=== PATIENT | female | born 1970 | race African-American/Black ===

== ENCOUNTER 2017-02-23 17:16 | Emergency (ER) | payer OTHER ==
[2017-02-23 18:13] LABS: Bilirubin Negative (Negative); Blood, Urine Negative (Negative); Glucose, Urine (Dipstick) >=1000 mg/dL (Negative); Ketone, Urine Negative (Negative); Nitrite Negative (Negative); Protein, Urine (Dipstick) 100 mg/dL (Neg-Trace); Urobilinogen 0.2 mg/dL (0.2-1.0)
[2017-02-23 18:16] LABS: Bacteria/HPF Rare-Few HPF (None Seen); Hyaline Casts/LPF 0-3 HYALINE CAST LPF (0-3 Hyaline); RBC/HPF 0-3 HPF (0-3); Squamous Epithelial 0-3 HPF (0-3); WBC/HPF 0-3 HPF (0-3)
[2017-02-23 18:39] LABS: #Basophils 0.1 thou/uL (0.0-0.2); #Eosinphils 0.1 thou/uL (0.0-0.7); #Lymphocytes 2.7 thou/uL (1.20-3.40); #Monocytes 0.5 thou/uL (0.11-0.59); #Neutrophils 4.6 thou/uL (1.40-6.50); %Basophils 0.7 % (0.0-1.0); %Eosinophils 0.8 % (0.0-10.0); %Monocytes 6.2 % (0.0-10.0); Hematocrit 50.1 % (36.0-47.0); Mean Platelet Volume 8.8 fL (7.4-10.4); Red Blood Cell (RBC) Count 5.99 mill/uL (4.20-5.40); White Blood Cell (WBC) Count 7.8 thou/uL (4.8-10.8)
[2017-02-23 19:01] LABS: ALT (SGPT) 28 U/L (8-55); AST (SGOT) 16 U/L (5-34); Alkaline Phosphatase 94 U/L (40-150); Anion Gap 14 mmol/L (10-20); BUN (Urea Nitrogen) 11 mg/dL (7.0-18.7); Bilirubin, Total 0.3 mg/dL (0.2-1.2); Calc. Creatinine Clearance 0 mL/min (70-130); Calcium 10.2 mg/dL (7.8-10.44); Carbon Dioxide 27 mmol/L (22-29); Chloride 100 mmol/L (98-107); Estimated GFR-MDRD 86; Globulin 4.3 g/dL (2.4-3.5); Protein, Total 8.7 g/dL (6.0-8.3)
[2017-02-23] MEDS ORDERED: Insulin Regular 300 UNITS/3 ML VIAL ONE (19:17)
[2017-02-23] MEDS ORDERED: Acetaminophen 325 MG TAB ONE (20:32)
== END 2017-02-23 20:35 | disposition home or self-care (01) ==
LOC: ERS 17:16
DX: E11.65 Type 2 diabetes mellitus with hyperglycemia (principal); E86.0 Dehydration; K21.9 Gastro-esophageal reflux disease without esophagitis; E78.5 Hyperlipidemia, unspecified; I10 Essential (primary) hypertension; G43.909 Migraine, unspecified, not intractable, without status migrainosus; J45.909 Unspecified asthma, uncomplicated; F32.9 Major depressive disorder, single episode, unspecified; Z79.4 Long term (current) use of insulin
CPT/HCPCS: 36415; 36416; 80053; 81003; 81015; 82010; 85025; 96361; 96374; J1815

== ENCOUNTER 2017-06-13 08:11 | Outpatient (CLI) | payer OTHER ==
--- NOTE | 2017-06-13 11:25 | RAD ---
4 VIEWS LUMBAR SPINE: Date: 06/13/17 HISTORY: Lumbar radiculopathy, back pain. FINDINGS: Clips in right upper quadrant from prior cholecystectomy noted. Five lumbar-type vertebral bodies are present with intact pedicles on frontal imaging. Neutral, flexion, and extension lateral views demon strate no anterolisthesis or retrolisthesis. There is lower lumbar spine facet hypertrophic change, m ost prominent at the L5-S1 level. No acute fracture. IMPRESSION: No acute findings. POS: LIN
--- NOTE | 2017-06-13 11:27 | MRI ---
LUMBAR SPINE MRI WITHOUT CONTRAST: DATE: 06/13/17. COMPARISON: None. HISTORY: Low back pain with lumbar radiculopathy. TECHNIQUE: Multiplanar, multisequence MR imaging of the lumbar spine obtained without contrast. FINDINGS: The sagittal STIR imaging demonstrates no focal area of osseous marrow edema. Assuming 5 lumbar-type vertebral bodies, the conus medullaris terminates at the T12-L1 level. There is no significant anterolisthesis or retrolisthesis seen within the lumbar spine. T12-L1: There is a tiny right paracentral disk protrusion with no associated central canal stenosis. Mild bilateral facet hypertrophy. Intervertebral disk height and signal intensity is within normal limits. No significant central canal or neural foraminal stenosis. L1-2: Mild bilateral facet hypertrophy. Intervertebral disk height and signal intensity within norm al limits with no significant central canal or neural foraminal stenosis. L2-3: There is a small right paracentral disk protrusion and associated annular tear. No associated central canal stenosis. Mild bilateral facet hypertrophy with no significant neural foraminal steno sis on either side. L3-4: Mild bilateral facet hypertrophy. Intervertebral disk height and signal intensity within norm al limits with no significant central canal or neural foraminal stenosis. L4-5: Mild bilateral facet hypertrophy. Mild disk space narrowing and disk desiccation and disk bul ge. No significant central canal stenosis. Minimal left neural foraminal stenosis. L5-S1: Bilateral facet hypertrophy noted, right greater than left. Intervertebral disk height and s ignal intensity is within normal limits with no significant central canal or neural foraminal stenosi s. Imaged retroperitoneal structures are grossly unremarkable. IMPRESSION: Multilevel lower lumbar spine degenerative change. No severe central canal or neural foraminal steno sis at any level on either side. POS: LIN
== END 2017-06-13 08:12 | disposition home or self-care (01) ==
LOC: TBSIIMAG 08:11
PROVIDERS: ATTEND Physician Assistant Surgical
DX: M47.26 Other spondylosis with radiculopathy, lumbar region (principal)
CPT/HCPCS: 72110; 72148

== ENCOUNTER 2017-08-19 10:09 | Outpatient (CLI) | payer OTHER ==
--- NOTE | 2017-08-19 11:53 | ULT ---
VENOUS DUPLEX SONOGRAM RIGHT LOWER EXTREMITY: History: Right leg pain and edema. FINDINGS: The right common femoral vein and greater saphenous vein were evaluated along with the femoral, deep femoral, popliteal, and posterior tibial veins. There is good color and spectral doppler flow, compre ssion, and augmentation. IMPRESSION: No sonographic evidence of DVT right lower extremity. POS: DOROTEO
== END 2017-08-19 10:10 | disposition home or self-care (01) ==
LOC: ULT 10:09
PROVIDERS: ATTEND Specialist
DX: M79.604 Pain in right leg (principal); M46.1 Sacroiliitis, not elsewhere classified

== ENCOUNTER 2018-11-09 09:56 | Outpatient (CLI) | payer OTHER ==
--- NOTE | 2018-11-09 10:39 | RAD ---
RIGHT HIP TWO VIEWS: History: Right hip pain. FINDINGS/IMPRESSION: There are mild degenerative changes. No fracture, dislocation, or bony destruction is seen. POS: TPC
--- NOTE | 2018-11-09 10:58 | RAD ---
LEFT HIP TWO VIEWS: History: Left hip pain. FINDINGS/IMPRESSION: There are mild degenerative changes. No fracture, dislocation, or bony destruction is identified. POS: TPC
== END 2018-11-09 09:57 | disposition home or self-care (01) ==
LOC: RAD 09:56
PROVIDERS: ATTEND Nurse Practitioner Family
DX: M25.551 Pain in right hip (principal); M25.552 Pain in left hip; M16.0 Bilateral primary osteoarthritis of hip

== ENCOUNTER 2019-01-24 12:51 | Outpatient (CLI) | payer OTHER ==
--- NOTE | 2019-01-24 13:58 | MMO ---
Bilateral MAMMO Bilat Screen DDI. CLINICAL HISTORY: Patient is 48 years old and is seen for screening. The patient has the following family history of breast cancer: sister, at age 35, LUNG AND OVARIAN and niece. The patient has no personal history of cancer. VIEWS: The views performed were: bilateral craniocaudal and bilateral mediolateral oblique. FILMS COMPARED: The present examination has been compared to prior imaging studies performed at [facility] on 03/09/2006, 09/10/2010, 04/13/2012 and 01/17/2016. This study has been interpreted with the assistance of computer-aided detection. MAMMOGRAM FINDINGS: There are scattered fibroglandular densities. There are no suspicious masses, suspicious calcifications, or new areas of architectural distortion. IMPRESSION: THERE IS NO MAMMOGRAPHIC EVIDENCE OF MALIGNANCY. A ROUTINE FOLLOW-UP MAMMOGRAM IN 1 YEAR IS RECOMMENDED. ACR BI-RADS Category 1 - Negative MAMMOGRAPHY NOTE: 1. A negative mammogram report should not delay a biopsy if a dominant of clinically suspicious mass is present. 2. Approximately 10% to 15% of breast cancers are not detected by mammography. 3. Adenosis and dense breasts may obscure an underlying neoplasm. Reported by: TARAH NICKERSON MD Electonically Signed: [id number]
== END 2019-01-24 12:52 | disposition home or self-care (01) ==
LOC: BICMAMMO 12:51
PROVIDERS: ATTEND Physician Assistant
DX: Z12.31 Encounter for screening mammogram for malignant neoplasm of breast (principal); Z80.3 Family history of malignant neoplasm of breast
CPT/HCPCS: 77067

== ENCOUNTER 2020-05-30 12:58 | Emergency (ER) | payer OTHER ==
[2020-05-30 13:31] LABS: #Eosinphils 0.1 thou/uL (0.0-0.7); #Lymphocytes 2.1 thou/uL (1.20-3.40); #Monocytes 0.4 thou/uL (0.11-0.59); #Neutrophils 4.5 thou/uL (1.40-6.50); %Basophils 0.4 % (0.0-1.0); %Eosinophils 1.4 % (0.0-10.0); %Lymphocytes 29.9 % (21.0-51.0); %Monocytes 5.6 % (0.0-10.0); %Neutrophils 62.7 % (42.0-75.0); Mean Corpuscular Hemoglobin 26.8 pg (27.0-31.0); Mean Corpuscular Volume 81.3 fL (78.0-98.0); Mean Platelet Volume 8.8 fL (7.4-10.4); Platelet Count 205 thou/uL (130-400); RBC Distribution Width 12.4 % (11.5-14.5); Red Blood Cell (RBC) Count 5.58 mill/uL (4.20-5.40); White Blood Cell (WBC) Count 7.1 thou/uL (4.8-10.8)
[2020-05-30 13:53] LABS: ALT (SGPT) 14 U/L (8-55); AST (SGOT) 10 U/L (5-34); Albumin 3.5 g/dL (3.5-5.0); Alkaline Phosphatase 78 U/L (40-110); Anion Gap 14 mmol/L (10-20); BUN (Urea Nitrogen) 12 mg/dL (7.0-18.7); Bilirubin, Total 0.2 mg/dL (0.2-1.2); Calc. Creatinine Clearance 0 mL/min (70-130); Calcium 8.8 mg/dL (7.8-10.44); Carbon Dioxide 26 mmol/L (22-29); Chloride 101 mmol/L (98-107); Globulin 3.2 g/dL (2.4-3.5); Glucose 469 mg/dL (70-105); Potassium 3.9 mmol/L (3.5-5.1); Protein, Total 6.7 g/dL (6.0-8.3); Sodium 137 mmol/L (136-145)
== END 2020-05-30 15:22 | disposition home or self-care (01) ==
LOC: ERS 12:58
DX: R07.89 Other chest pain (principal); E11.9 Type 2 diabetes mellitus without complications; E78.5 Hyperlipidemia, unspecified; I12.0 Hypertensive chronic kidney disease with stage 5 chronic kidney disease or end stage renal disease; N18.6 End stage renal disease; Z79.899 Other long term (current) drug therapy
CPT/HCPCS: 36415; 71045; 80053; 84484; 85025; 85379; 93005; 94760

== ENCOUNTER 2020-06-18 12:10 | Emergency (ER) | payer OTHER | END 2020-06-18 15:02 | disposition left against medical advice (07) | LOC: ERS 12:10 | DX: Z53.21 Procedure and treatment not carried out due to patient leaving prior to being seen by health care provider (principal) ==

== ENCOUNTER 2020-06-23 10:25 | Day surgery (SDC) | payer OTHER ==
[2020-06-23] MEDS ORDERED: Vancomycin 1 GM/200 ML BAG ONE (11:15)
[2020-06-23 12:00] LABS: Hemoglobin 11.8 g/dL (12.0-16.0); Mean Corpuscular HGB CONC 32.3 g/dL (32.0-36.0); Mean Corpuscular Hemoglobin 26.6 pg (27.0-31.0); Mean Corpuscular Volume 82.3 fL (78.0-98.0); Platelet Count 374 thou/uL (130-400); RBC Distribution Width 11.6 % (11.5-14.5); Red Blood Cell (RBC) Count 4.42 mill/uL (4.20-5.40)
[2020-06-23 12:01] LABS: ALT (SGPT) 12 U/L (8-55); AST (SGOT) 9 U/L (5-34); Albumin 2.5 g/dL (3.5-5.0); Alkaline Phosphatase 99 U/L (40-110); Anion Gap 16 mmol/L (10-20); BUN (Urea Nitrogen) 7 mg/dL (7.0-18.7); Bilirubin, Total 0.4 mg/dL (0.2-1.2); CK (CPK) 72 U/L (29-168); Calc. Creatinine Clearance 0 mL/min (70-130); Calcium 8.1 mg/dL (7.8-10.44); Carbon Dioxide 28 mmol/L (22-29); Chloride 91 mmol/L (98-107); Globulin 4.4 g/dL (2.4-3.5); Glucose 524 mg/dL (70-105); Potassium 3.2 mmol/L (3.5-5.1); Protein, Total 6.9 g/dL (6.0-8.3); Sodium 132 mmol/L (136-145)
[2020-06-23 12:30] LABS: Band 13 % (5-11); Eosinophils 1 % (0-10); Lymphocytes 17 % (21-51); MDiff Complete? YES; Monocytes 4 % (0-10); Neutrophil 64 % (42-75); RBC Morphology Normal; Reactive Lymphocytes 1 % (0-10)
[2020-06-23] MEDS ORDERED: Morphine 4 MG/ML VIAL ONE (12:35)
[2020-06-23 12:58] LABS: SARS-CoV-2 NAA Rapid Test Not Detected (NotDetected)
[2020-06-23] MEDS ORDERED: Piperacillin/Tazobactam 4.5 GM VIAL ONE (13:29)
[2020-06-23] MEDS ORDERED: Insulin Regular 300 UNITS/3 ML VIAL ONE (14:32)
[2020-06-23] MEDS ORDERED: Fentanyl 100 MCG/2 ML VIAL ONE ×4 (15:36→18:10)
[2020-06-23] MEDS ORDERED: Midazolam HCl 2 mg/2 ml Vial ONE (15:52)
[2020-06-23] MEDS ORDERED: Lidocaine 1% PF 5 ML VIAL ONE (16:12)
[2020-06-23] MEDS ORDERED: Rocuronium Bromide 10 MG/ML (10ML VIAL) ONE (16:12)
[2020-06-23] MEDS ORDERED: PROPOFOL 200 MG/20 ML VIAL ONE (16:12)
[2020-06-23] MEDS ORDERED: Ondansetron PF 4 MG/2 ML Vial ONE (16:12)
[2020-06-23] MEDS ORDERED: SUGAMMADEX SODIUM 200 MG/2 ML VIAL ONE (16:38)
[2020-06-23] MEDS ORDERED: HYDROcodone/Acetaminophen 5/325 mg Tablet ONE (18:48)
== END 2020-06-23 19:30 | disposition home or self-care (01) ==
LOC: ERS 10:25 → SDC 13:47
PROVIDERS: ATTEND Surgery
PROC: 0J990ZZ Drainage of Buttock Subcutaneous Tissue and Fascia, Open Approach (ICD-10-PCS; principal; 2020-06-23)
DX: L02.31 Cutaneous abscess of buttock (principal); E78.5 Hyperlipidemia, unspecified; I12.9 Hypertensive chronic kidney disease with stage 1 through stage 4 chronic kidney disease, or unspecified chronic kidney disease; E11.22 Type 2 diabetes mellitus with diabetic chronic kidney disease; N18.2 Chronic kidney disease, stage 2 (mild); J45.909 Unspecified asthma, uncomplicated; E11.42 Type 2 diabetes mellitus with diabetic polyneuropathy; E66.9 Obesity, unspecified; Z68.37 Body mass index [BMI] 37.0-37.9, adult; Z79.4 Long term (current) use of insulin; Z79.899 Other long term (current) drug therapy; Z88.0 Allergy status to penicillin; Z88.8 Allergy status to other drugs, medicaments and biological substances; Z20.822 Contact with and (suspected) exposure to COVID-19
CPT/HCPCS: 36415; 36416; 80053; 82550; 85025; 87070; 87077; 87186; 87205; 93005; 96365; 96375; J1815; J2250; J2270; J2405; J2543; J2704; J3010; J3370; J7620; U0002

== ENCOUNTER 2020-07-08 09:53 | Outpatient (CLI) | payer OTHER ==
[~2020-07-08 09:53] MED LIST: Iopamidol-370 76% 500 ML 1 ML ONE
[2020-07-08 10:27] LABS: Estimated GFR-MDRD - POC Greater than 90
== END 2020-07-08 09:54 | disposition home or self-care (01) ==
LOC: BICCT 09:53
PROVIDERS: ATTEND Internal Medicine Nephrology
DX: I12.9 Hypertensive chronic kidney disease with stage 1 through stage 4 chronic kidney disease, or unspecified chronic kidney disease (principal); N18.2 Chronic kidney disease, stage 2 (mild); R16.0 Hepatomegaly, not elsewhere classified; N28.89 Other specified disorders of kidney and ureter; Z90.49 Acquired absence of other specified parts of digestive tract
CPT/HCPCS: 74175; 82565; Q9967

== ENCOUNTER 2022-11-13 16:10 | Inpatient (IN) | payer OTHER ==
[2022-11-13 17:05] LABS: #Basophils 0.1 thou/uL (0.0-0.2); #Eosinphils 0.2 thou/uL (0.0-0.7); #Monocytes 0.7 thou/uL (0.11-0.59); #Neutrophils 6.2 thou/uL (1.40-6.50); %Basophils 0.7 % (0.0-1.0); %Eosinophils 2.6 % (0.0-10.0); %Lymphocytes 20.4 % (21.0-51.0); %Monocytes 7.5 % (0.0-10.0); %Neutrophils 68.4 % (42.0-75.0); Hematocrit 38.6 % (36.0-47.0); Hemoglobin 12.5 g/dL (12.0-16.0); Mean Corpuscular HGB CONC 32.4 g/dL (32.0-36.0); Mean Corpuscular Hemoglobin 25.2 pg (27.0-31.0); Mean Corpuscular Volume 77.7 fl (78.0-98.0); Mean Platelet Volume 10.7 fL (7.4-10.4); Platelet Count 266 10x3/uL (130-400); RBC Distribution Width 13.9 % (11.5-14.5); Red Blood Cell (RBC) Count 4.97 mill/uL (4.20-5.40)
[2022-11-13 17:28] LABS: ALT (SGPT) Less than 7 U/L (8-55); AST (SGOT) 8 U/L (5-34); Albumin 3.3 g/dL (3.5-5.0); Alkaline Phosphatase 70 U/L (40-110); Anion Gap 14 mmol/L (10-20); BUN (Urea Nitrogen) 43 mg/dL (9.8-20.1); Bilirubin, Total 0.2 mg/dL (0.2-1.2); Calc. Creatinine Clearance 0 mL/min (70-130); Calcium 9.2 mg/dL (7.8-10.44); Carbon Dioxide 21 mmol/L (22-29); Chloride 105 mmol/L (98-107); Estimated GFR 12; Globulin 4.2 g/dL (2.4-3.5); Glucose 250 mg/dL (70-105); Lipase 46 U/L (8-78); Potassium 3.3 mmol/L (3.5-5.1); Protein, Total 7.5 g/dL (6.0-8.3); Sodium 137 mmol/L (136-145)
[2022-11-13 17:33] LABS: Troponin I Less than 0.010 ng/mL (< 0.028)
[2022-11-13] MEDS ORDERED: fentaNYL 50 mcg/mL 1 mL Vial ONE (18:05)
[2022-11-13] MEDS ORDERED: Aspirin Chewable 81 MG TAB ONE (18:05)
[2022-11-13 20:51] VITALS: BMI 38.7
[2022-11-13 21:27] LABS: Troponin I Less than 0.010 ng/mL (< 0.028)
[2022-11-13] MEDS ORDERED: Ondansetron ODT 4 MG TAB PO PRN (22:31)
[2022-11-13] MEDS ORDERED: Calcium Carbonate 500 MG ChewTAB PO PRN (22:31)
[2022-11-13] MEDS ORDERED: Senokot S 8.6-50 MG TAB PO PRN (22:31)
[2022-11-13] MEDS ORDERED: Dextrose 5% in Water 1,000 ML IV PRN (22:33)
[2022-11-13] MEDS ORDERED: Dextrose 50% Abboject 50 ML SYRINGE SLOW IVP PRN (22:33)
[2022-11-13] MEDS ORDERED: HumaLOG 300 UNITS/3 ML VIAL SC PRN (22:33)
[2022-11-13] MEDS ORDERED: Glucagon 1 MG/ML KIT IM PRN (22:33)
[2022-11-13] MEDS ORDERED: Lactated Ringer's 1,000 ML IV SCH (22:45)
[2022-11-13] MEDS ORDERED: Potassium Chloride 20 MEQ TAB PO SCH (22:45)
[2022-11-13 22:55] LABS: Hemoglobin A1c 8.2 % (4.0-6.0)
[2022-11-13] MEDS: Acetaminophen 325 MG TAB PO PRN (22:55)
[2022-11-14 00:45] LABS: Troponin I Less than 0.010 ng/mL (< 0.028)
[2022-11-14] MEDS: HumaLOG 300 UNITS/3 ML VIAL SC PRN ×2 (06:28→17:10)
[2022-11-14 06:31] LABS: #Basophils 0.1 thou/uL (0.0-0.2); #Eosinphils 0.4 thou/uL (0.0-0.7); #Monocytes 0.8 thou/uL (0.11-0.59); %Basophils 0.7 % (0.0-1.0); %Eosinophils 3.5 % (0.0-10.0); %Lymphocytes 27.4 % (21.0-51.0); %Monocytes 8.1 % (0.0-10.0); %Neutrophils 60.2 % (42.0-75.0); Hematocrit 39.8 % (36.0-47.0); Hemoglobin 12.7 g/dL (12.0-16.0); Mean Corpuscular HGB CONC 31.9 g/dL (32.0-36.0); Mean Corpuscular Hemoglobin 24.7 pg (27.0-31.0); Mean Corpuscular Volume 77.3 fl (78.0-98.0); Mean Platelet Volume 10.4 fL (7.4-10.4); Platelet Count 281 10x3/uL (130-400); RBC Distribution Width 13.8 % (11.5-14.5); Red Blood Cell (RBC) Count 5.15 mill/uL (4.20-5.40)
[2022-11-14 06:54] LABS: Anion Gap 15 mmol/L (10-20); BUN (Urea Nitrogen) 45 mg/dL (9.8-20.1); Calc. Creatinine Clearance 22 mL/min (70-130); Calcium 9.7 mg/dL (7.8-10.44); Carbon Dioxide 23 mmol/L (22-29); Chloride 106 mmol/L (98-107); Estimated GFR 12; Glucose 181 mg/dL (70-105); Potassium 3.6 mmol/L (3.5-5.1); Sodium 140 mmol/L (136-145)
[2022-11-14] MEDS ORDERED: Lorazepam 0.5 MG TAB PO PRN (07:47)
[2022-11-14] MEDS ORDERED: Albuterol 200 PUFF (6.7GM INHALER) INH PRN (07:47)
[2022-11-14] MEDS ORDERED: Non-Formulary Item 1 EACH (Budesonide [Pulmicort Flexhaler] 180 MCG Inhaler) INH PRN (07:47)
[2022-11-14] MEDS ORDERED: BUDESONIDE 180 MCG INH PRN (08:04)
[2022-11-14] MEDS ORDERED: Metoprolol Tartrate 25 MG TAB PO SCH (09:00)
[2022-11-14] MEDS ORDERED: Famotidine 20 MG TAB PO SCH (09:00)
[2022-11-14] MEDS: DULoxetine 20 MG CAP PO SCH ×2 (11:29→22:09)
[2022-11-14] MEDS: Insulin Glargine 30 UNITS/0.3 ML VIAL SC SCH ×2 (11:30→21:41)
[2022-11-14] MEDS ORDERED: Sodium Chloride 0.9% 1,000 ML IV SCH (12:00)
[2022-11-14] MEDS ORDERED: Mometasone Furoate 30 PUFF 220 MCG INH PRN (12:41)
[2022-11-14] MEDS ORDERED: hydrALAZINE 25 MG TAB PO SCH ×2 (13:30→21:00)
[2022-11-14] MEDS ORDERED: NIFEdipine XL 30 MG TAB PO SCH (16:46)
[2022-11-14] MEDS: NIFEdipine XL 60 MG TAB PO SCH (17:08)
[2022-11-14] MEDS: Carvedilol 6.25 MG TAB PO SCH (17:08)
[2022-11-14] MEDS ORDERED: niCARdipine 25 MG in Sodium Chloride 0.9% 250 ML 250 ML IVPB PRN (19:16)
[2022-11-14] MEDS ORDERED: Atorvastatin Calcium 40 MG TAB PO SCH (21:00)
[2022-11-14] MEDS ORDERED: hydrALAZINE 20 MG/ML VIAL SLOW IVP PRN (21:07)
[2022-11-14] MEDS ORDERED: Labetalol HCl 100 MG/20 ML VIAL SLOW IVP PRN (21:07)
[2022-11-14] MEDS ORDERED: niCARdipine 40MG In NaCl 40 MG/200 ML BAG IVPB SCH (21:23)
[2022-11-14] MEDS ORDERED: niCARdipine 50 MG, Admixture Fee 1 EACH in Sodium Chloride 0.9% 250 ML 230 ML IV SCH (21:30)
[2022-11-14] MEDS ORDERED: Acetaminophen 500 MG TAB PO SCH (21:30)
[2022-11-14] MEDS: Acetaminophen 325 MG TAB PO PRN (21:37)
[2022-11-14] MEDS: hydrALAZINE 25 MG TAB PO SCH (21:56)
[2022-11-14] MEDS: cloNIDine 0.1 MG TAB PO SCH (22:00)
[2022-11-15] MEDS: NIFEdipine XL 60 MG TAB PO SCH ×2 (07:38→20:58)
[2022-11-15] MEDS: cloNIDine 0.1 MG TAB PO SCH ×3 (07:39→20:58)
[2022-11-15] MEDS: hydrALAZINE 25 MG TAB PO SCH ×3 (07:39→20:57)
[2022-11-15] MEDS: Rosuvastatin 20 MG TAB PO SCH (07:40)
[2022-11-15] MEDS: Escitalopram Oxalate 20 mg Tablet PO SCH (07:40)
[2022-11-15] MEDS: Carvedilol 6.25 MG TAB PO SCH ×2 (07:42→17:28)
[2022-11-15] MEDS: Insulin Glargine 30 UNITS/0.3 ML VIAL SC SCH ×2 (07:44→20:59)
[2022-11-15] MEDS: DULoxetine 20 MG CAP PO SCH ×2 (08:25→21:07)
[2022-11-15] MEDS ORDERED: NIFEdipine XL 30 MG TAB PO SCH (09:00)
[2022-11-15 10:31] LABS: Amphetamine Not Detected (NotDetected); Barbiturates Screen Not Detected (NotDetected); Benzodiazepine Screen Not Detected (NotDetected); Cocaine Metabolite Screen Not Detected (NotDetected); Methadone Not Detected (NotDetected); Methamphetamine Not Detected (NotDetected); Opiate Screen Not Detected (NotDetected); Oxycodone Screen Not Detected (NotDetected); Phencyclidine (PCP) Not Detected (NotDetected); THC/Cannabinoid Screen Not Detected (NotDetected); Tricyclic Screen Not Detected (NotDetected)
[2022-11-15] MEDS: HumaLOG 300 UNITS/3 ML VIAL SC PRN (10:49)
[2022-11-15 11:23] LABS: #Basophils 0.1 thou/uL (0.0-0.2); #Eosinphils 0.2 thou/uL (0.0-0.7); #Monocytes 0.7 thou/uL (0.11-0.59); #Neutrophils 5.9 thou/uL (1.40-6.50); %Basophils 0.6 % (0.0-1.0); %Eosinophils 2.6 % (0.0-10.0); %Lymphocytes 18.8 % (21.0-51.0); %Monocytes 7.8 % (0.0-10.0); %Neutrophils 69.8 % (42.0-75.0); Hematocrit 38.3 % (36.0-47.0); Mean Corpuscular HGB CONC 31.3 g/dL (32.0-36.0); Mean Corpuscular Hemoglobin 24.8 pg (27.0-31.0); Mean Corpuscular Volume 79.1 fl (78.0-98.0); Mean Platelet Volume 11.4 fL (7.4-10.4); Platelet Count 271 10x3/uL (130-400); RBC Distribution Width 14.1 % (11.5-14.5); Red Blood Cell (RBC) Count 4.84 mill/uL (4.20-5.40); White Blood Cell (WBC) Count 8.5 10x3/uL (4.8-10.8)
[2022-11-15 11:47] LABS: Anion Gap 11 mmol/L (10-20); BUN (Urea Nitrogen) 45 mg/dL (9.8-20.1); Calc. Creatinine Clearance 24 mL/min (70-130); Calcium 9.3 mg/dL (7.8-10.44); Carbon Dioxide 19 mmol/L (22-29); Chloride 109 mmol/L (98-107); Estimated GFR 12; Glucose 179 mg/dL (70-105); Potassium 3.5 mmol/L (3.5-5.1); Sodium 135 mmol/L (136-145)
[2022-11-15 11:48] LABS: Albumin 3.1 g/dL (3.5-5.0); Anion Gap 11 mmol/L (10-20); BUN (Urea Nitrogen) 44 mg/dL (9.8-20.1); BUN/Creatinine Ratio 10.73; Calc. Creatinine Clearance 24 mL/min (70-130); Calcium 9.3 mg/dL (7.8-10.44); Carbon Dioxide 19 mmol/L (22-29); Chloride 110 mmol/L (98-107); Estimated GFR 12; Glucose 181 mg/dL (70-105); Phosphorus 4.1 mg/dL (2.3-4.7); Potassium 3.5 mmol/L (3.5-5.1); Sodium 136 mmol/L (136-145)
[2022-11-15] MEDS: Acetaminophen 325 MG TAB PO PRN (14:48)
[2022-11-15] MEDS: Heparin 5,000 UNITS/ML VIAL SC SCH (21:02)
[2022-11-16 08:43] LABS: #Basophils 0.1 thou/uL (0.0-0.2); #Eosinphils 0.1 thou/uL (0.0-0.7); #Monocytes 0.7 thou/uL (0.11-0.59); #Neutrophils 5.4 thou/uL (1.40-6.50); %Basophils 0.8 % (0.0-1.0); %Eosinophils 1.6 % (0.0-10.0); %Lymphocytes 20.9 % (21.0-51.0); %Monocytes 8.5 % (0.0-10.0); %Neutrophils 67.8 % (42.0-75.0); Hematocrit 35.5 % (36.0-47.0); Hemoglobin 10.9 g/dL (12.0-16.0); Mean Corpuscular HGB CONC 30.7 g/dL (32.0-36.0); Mean Corpuscular Hemoglobin 24.7 pg (27.0-31.0); Mean Corpuscular Volume 80.5 fl (78.0-98.0); Platelet Count 261 10x3/uL (130-400); RBC Distribution Width 14.4 % (11.5-14.5); Red Blood Cell (RBC) Count 4.41 mill/uL (4.20-5.40); White Blood Cell (WBC) Count 7.9 10x3/uL (4.8-10.8)
[2022-11-16] MEDS: NIFEdipine XL 60 MG TAB PO SCH ×2 (09:15→22:00)
[2022-11-16] MEDS: Carvedilol 6.25 MG TAB PO SCH ×2 (09:15→17:59)
[2022-11-16] MEDS: Heparin 5,000 UNITS/ML VIAL SC SCH ×2 (09:16→20:35)
[2022-11-16] MEDS: Famotidine 20 MG TAB PO SCH (09:16)
[2022-11-16] MEDS: cloNIDine 0.1 MG TAB PO SCH (09:16)
[2022-11-16] MEDS: hydrALAZINE 25 MG TAB PO SCH ×3 (09:16→22:00)
[2022-11-16] MEDS: Escitalopram Oxalate 20 mg Tablet PO SCH (09:16)
[2022-11-16] MEDS: Insulin Glargine 30 UNITS/0.3 ML VIAL SC SCH ×2 (09:16→20:36)
[2022-11-16] MEDS: Rosuvastatin 20 MG TAB PO SCH (09:21)
[2022-11-16] MEDS: DULoxetine 20 MG CAP PO SCH ×2 (09:21→21:53)
[2022-11-16 09:23] LABS: Albumin 2.8 g/dL (3.5-5.0); Anion Gap 15 mmol/L (10-20); BUN (Urea Nitrogen) 48 mg/dL (9.8-20.1); Calc. Creatinine Clearance 21 mL/min (70-130); Carbon Dioxide 20 mmol/L (22-29); Chloride 106 mmol/L (98-107); Estimated GFR 11; Glucose 127 mg/dL (70-105); Phosphorus 5.1 mg/dL (2.3-4.7); Sodium 137 mmol/L (136-145)
[2022-11-17] MEDS: Acetaminophen 325 MG TAB PO PRN (06:02)
[2022-11-17] MEDS ORDERED: Carvedilol 3.125 MG TAB PO SCH (08:00)
[2022-11-17 08:10] LABS: #Eosinphils 0.2 thou/uL (0.0-0.7); #Monocytes 0.7 thou/uL (0.11-0.59); #Neutrophils 4.4 thou/uL (1.40-6.50); %Basophils 0.4 % (0.0-1.0); %Eosinophils 2.2 % (0.0-10.0); %Lymphocytes 21.1 % (21.0-51.0); %Monocytes 10.5 % (0.0-10.0); %Neutrophils 65.5 % (42.0-75.0); Hematocrit 34.1 % (36.0-47.0); Hemoglobin 10.5 g/dL (12.0-16.0); Mean Corpuscular HGB CONC 30.8 g/dL (32.0-36.0); Mean Corpuscular Hemoglobin 24.5 pg (27.0-31.0); Mean Corpuscular Volume 79.7 fl (78.0-98.0); Mean Platelet Volume 10.8 fL (7.4-10.4); Platelet Count 233 10x3/uL (130-400); RBC Distribution Width 14.1 % (11.5-14.5); Red Blood Cell (RBC) Count 4.28 mill/uL (4.20-5.40); White Blood Cell (WBC) Count 6.8 10x3/uL (4.8-10.8)
[2022-11-17] MEDS: Rosuvastatin 20 MG TAB PO SCH (08:25)
[2022-11-17] MEDS: NIFEdipine XL 60 MG TAB PO SCH ×2 (08:25→21:23)
[2022-11-17] MEDS: Escitalopram Oxalate 20 mg Tablet PO SCH (08:25)
[2022-11-17] MEDS: Heparin 5,000 UNITS/ML VIAL SC SCH ×2 (08:26→21:23)
[2022-11-17] MEDS: Insulin Glargine 30 UNITS/0.3 ML VIAL SC SCH ×2 (08:26→21:23)
[2022-11-17 08:30] LABS: Albumin 2.9 g/dL (3.5-5.0); Anion Gap 4 mmol/L (10-20); BUN (Urea Nitrogen) 48 mg/dL (9.8-20.1); BUN/Creatinine Ratio 10.23; Calc. Creatinine Clearance 20 mL/min (70-130); Carbon Dioxide 20 mmol/L (22-29); Chloride 109 mmol/L (98-107); Estimated GFR 11; Glucose 110 mg/dL (70-105); Phosphorus 5.5 mg/dL (2.3-4.7); Potassium 3.6 mmol/L (3.5-5.1); Sodium 129 mmol/L (136-145)
[2022-11-17] MEDS: DULoxetine 20 MG CAP PO SCH ×2 (08:31→21:45)
[2022-11-17] MEDS: hydrALAZINE 25 MG TAB PO SCH (08:32)
[2022-11-17] MEDS: Sodium Chloride 0.9% 1,000 ML IV SCH (11:19)
[2022-11-17] MEDS: Carvedilol 6.25 MG TAB PO SCH (17:59)
[2022-11-18] MEDS: Carvedilol 6.25 MG TAB PO SCH ×2 (08:15→17:28)
[2022-11-18] MEDS: Famotidine 20 MG TAB PO SCH (08:15)
[2022-11-18] MEDS: Escitalopram Oxalate 20 mg Tablet PO SCH (08:16)
[2022-11-18] MEDS: NIFEdipine XL 60 MG TAB PO SCH (08:16)
[2022-11-18] MEDS: Heparin 5,000 UNITS/ML VIAL SC SCH (08:16)
[2022-11-18] MEDS: Insulin Glargine 30 UNITS/0.3 ML VIAL SC SCH (08:16)
[2022-11-18] MEDS: Rosuvastatin 20 MG TAB PO SCH (08:16)
[2022-11-18] MEDS: DULoxetine 20 MG CAP PO SCH (08:17)
[2022-11-18] MEDS: Sodium Chloride 0.9% 1,000 ML IV SCH ×3 (08:23→17:28)
[2022-11-18 12:20] LABS: Anion Gap 14 mmol/L (10-20); BUN (Urea Nitrogen) 45 mg/dL (9.8-20.1); BUN/Creatinine Ratio 10.16; Calc. Creatinine Clearance 22 mL/min (70-130); Calcium 8.6 mg/dL (7.8-10.44); Carbon Dioxide 20 mmol/L (22-29); Chloride 109 mmol/L (98-107); Estimated GFR 11; Glucose 131 mg/dL (70-105); Phosphorus 4.6 mg/dL (2.3-4.7); Potassium 3.9 mmol/L (3.5-5.1); Sodium 139 mmol/L (136-145)
[2022-11-18 16:51] VITALS: BP 158/73; TEMP 98.1
[2022-11-18] MEDS: Acetaminophen 325 MG TAB PO PRN (17:30)
== END 2022-11-18 17:48 | disposition home or self-care (01) | DRG 392 ==
LOC: ERS 16:10 → 2SW 18:45 → OBSVTOIN 11-14 07:49 → CCU 11-14 21:12 → IMCU/EMU 11-15 14:04 → T4-A 11-16 15:29
PROVIDERS: ADMIT Family Medicine; ATTEND Internal Medicine
DX: K21.9 Gastro-esophageal reflux disease without esophagitis (principal); N17.9 Acute kidney failure, unspecified; I16.0 Hypertensive urgency; E11.22 Type 2 diabetes mellitus with diabetic chronic kidney disease; N18.31 Chronic kidney disease, stage 3a; E78.5 Hyperlipidemia, unspecified; F32.A Depression, unspecified; F41.9 Anxiety disorder, unspecified; E87.6 Hypokalemia; I12.9 Hypertensive chronic kidney disease with stage 1 through stage 4 chronic kidney disease, or unspecified chronic kidney disease; G47.33 Obstructive sleep apnea (adult) (pediatric); E11.42 Type 2 diabetes mellitus with diabetic polyneuropathy; R51.9 Headache, unspecified; D63.1 Anemia in chronic kidney disease; E66.9 Obesity, unspecified; Z88.0 Allergy status to penicillin; Z88.8 Allergy status to other drugs, medicaments and biological substances; Z79.84 Long term (current) use of oral hypoglycemic drugs; Z90.49 Acquired absence of other specified parts of digestive tract; Z90.710 Acquired absence of both cervix and uterus; Z98.890 Other specified postprocedural states; Z79.4 Long term (current) use of insulin; Z68.38 Body mass index [BMI] 38.0-38.9, adult; Z82.49 Family history of ischemic heart disease and other diseases of the circulatory system; R07.2 Precordial pain
CPT/HCPCS: 36415; 36416; 71045; 76770; 80048; 80053; 80069; 80306; 83036; 83690; 83935; 84300; 84484; 85025; 93005; 93306; 96374; G0378; J1644; J1815; J3010; J7050; J7120; Q0162

== ENCOUNTER 2022-12-28 20:11 | Inpatient (IN) | payer OTHER ==
[2022-12-28 20:39] LABS: #Basophils 0.1 thou/uL (0.0-0.2); #Eosinphils 0.1 thou/uL (0.0-0.7); #Monocytes 0.7 thou/uL (0.11-0.59); #Neutrophils 12.4 thou/uL (1.40-6.50); %Basophils 0.5 % (0.0-1.0); %Eosinophils 0.8 % (0.0-10.0); %Lymphocytes 11.3 % (21.0-51.0); %Monocytes 4.6 % (0.0-10.0); %Neutrophils 82.3 % (42.0-75.0); Hematocrit 29.5 % (36.0-47.0); Hemoglobin 9.3 g/dL (12.0-16.0); Mean Corpuscular HGB CONC 31.5 g/dL (32.0-36.0); Mean Corpuscular Hemoglobin 24.9 pg (27.0-31.0); Mean Corpuscular Volume 79.1 fl (78.0-98.0); Mean Platelet Volume 11.1 fL (7.4-10.4); Platelet Count 322 10x3/uL (130-400); RBC Distribution Width 14.5 % (11.5-14.5); Red Blood Cell (RBC) Count 3.73 mill/uL (4.20-5.40); White Blood Cell (WBC) Count 15.1 10x3/uL (4.8-10.8)
[2022-12-28 21:04] LABS: ALT (SGPT) Less than 7 U/L (8-55); AST (SGOT) 10 U/L (5-34); Albumin 3.2 g/dL (3.5-5.0); Alkaline Phosphatase 74 U/L (40-110); Anion Gap 14 mmol/L (10-20); BUN (Urea Nitrogen) 35 mg/dL (9.8-20.1); Bilirubin, Total 0.2 mg/dL (0.2-1.2); Calc. Creatinine Clearance 0 mL/min (70-130); Calcium 8.6 mg/dL (7.8-10.44); Carbon Dioxide 20 mmol/L (22-29); Chloride 108 mmol/L (98-107); Estimated GFR 12; Globulin 3.6 g/dL (2.4-3.5); Glucose 212 mg/dL (70-105); Potassium 3.9 mmol/L (3.5-5.1); Protein, Total 6.8 g/dL (6.0-8.3); Sodium 138 mmol/L (136-145)
[2022-12-28] MEDS ORDERED: Aspirin Chewable 81 MG TAB ONE (21:15)
[2022-12-28] MEDS ORDERED: Furosemide 40 MG/4 ML VIAL ONE (21:15)
[2022-12-28] MEDS ORDERED: HumaLOG 300 UNITS/3 ML VIAL SC PRN ×2 (21:42)
[2022-12-28] MEDS ORDERED: Glucagon 1 MG/ML KIT IM PRN (21:42)
[2022-12-28] MEDS ORDERED: Ondansetron PF 4 MG/2 ML Vial IVP PRN (21:42)
[2022-12-28] MEDS ORDERED: Acetaminophen 325 MG TAB PO PRN (21:42)
[2022-12-28] MEDS ORDERED: Dextrose 5% in Water 1,000 ML IV PRN (21:42)
[2022-12-28] MEDS ORDERED: Dextrose 50% Abboject 50 ML SYRINGE SLOW IVP PRN (21:42)
[2022-12-28] MEDS ORDERED: Ondansetron ODT 4 MG TAB PO PRN (21:42)
[2022-12-28 22:02] LABS: Hemoglobin A1c 7.3 % (4.0-6.0)
[2022-12-28] MEDS ORDERED: Ipratropium/Albuterol 3 ML NEB NEB PRN (22:52)
[2022-12-28] MEDS ORDERED: Ipratropium/Albuterol 3 ML NEB NEB SCH (23:00)
[2022-12-28] MEDS ORDERED: Furosemide 40 MG/4 ML VIAL SLOW IVP SCH (23:00)
[2022-12-28 23:33] VITALS: BMI 41.0
[2022-12-29 00:16] LABS: Troponin I Less than 0.010 ng/mL (< 0.028)
[2022-12-29] MEDS ORDERED: Furosemide 20 MG/2 ML VIAL SLOW IVP SCH (02:30)
[2022-12-29 05:27] LABS: #Basophils 0.1 thou/uL (0.0-0.2); #Eosinphils 0.2 thou/uL (0.0-0.7); #Monocytes 0.8 thou/uL (0.11-0.59); #Neutrophils 6.9 thou/uL (1.40-6.50); %Basophils 0.6 % (0.0-1.0); %Eosinophils 1.8 % (0.0-10.0); %Monocytes 8.1 % (0.0-10.0); %Neutrophils 66.2 % (42.0-75.0); Hematocrit 23.6 % (36.0-47.0); Hemoglobin 7.5 g/dL (12.0-16.0); Mean Corpuscular HGB CONC 31.8 g/dL (32.0-36.0); Mean Corpuscular Hemoglobin 25.3 pg (27.0-31.0); Mean Corpuscular Volume 79.7 fl (78.0-98.0); Mean Platelet Volume 11.3 fL (7.4-10.4); Platelet Count 257 10x3/uL (130-400); RBC Distribution Width 14.4 % (11.5-14.5); Red Blood Cell (RBC) Count 2.96 mill/uL (4.20-5.40); White Blood Cell (WBC) Count 10.4 10x3/uL (4.8-10.8)
[2022-12-29] MEDS: Furosemide 100 MG/10 ML VIAL SLOW IVP SCH ×2 (05:35→15:42)
[2022-12-29 05:53] LABS: Anion Gap 14 mmol/L (10-20); BUN (Urea Nitrogen) 37 mg/dL (9.8-20.1); Calc. Creatinine Clearance 23 mL/min (70-130); Calcium 8.4 mg/dL (7.8-10.44); Carbon Dioxide 22 mmol/L (22-29); Chloride 108 mmol/L (98-107); Estimated GFR 12; Glucose 117 mg/dL (70-105); Magnesium 1.8 mg/dL (1.6-2.6); Potassium 3.5 mmol/L (3.5-5.1); Sodium 140 mmol/L (136-145)
[2022-12-29] MEDS ORDERED: NIFEdipine XL 60 MG ER.TAB PO SCH (09:00)
[2022-12-29] MEDS: HumaLOG 300 UNITS/3 ML VIAL SC SCH ×3 (10:02→18:18)
[2022-12-29] MEDS: Famotidine 20 MG TAB PO SCH (10:11)
[2022-12-29] MEDS: Heparin 5,000 UNITS/ML VIAL SC SCH ×3 (10:11→21:00)
[2022-12-29] MEDS: Escitalopram Oxalate 20 mg Tablet PO SCH (10:11)
[2022-12-29] MEDS: Rosuvastatin 10 MG TAB PO SCH (10:12)
[2022-12-29] MEDS ORDERED: Hydrochlorothiazide 25 MG TAB PO SCH (12:43)
[2022-12-29 13:13] LABS: Hematocrit 26.4 % (36.0-47.0); Hemoglobin 8.2 g/dL (12.0-16.0); Platelet Count 274 10x3/uL (130-400)
[2022-12-29] MEDS: Carvedilol 6.25 MG TAB PO SCH (17:00)
[2022-12-29] MEDS ORDERED: Insulin Glargine 30 UNITS/0.3 ML VIAL SC SCH (21:00)
[2022-12-29] MEDS: hydrALAZINE 25 MG TAB PO SCH (21:00)
[2022-12-30 04:39] LABS: #Basophils 0.1 thou/uL (0.0-0.2); #Eosinphils 0.2 thou/uL (0.0-0.7); #Monocytes 0.7 thou/uL (0.11-0.59); #Neutrophils 5.1 thou/uL (1.40-6.50); %Basophils 0.6 % (0.0-1.0); %Eosinophils 2.9 % (0.0-10.0); %Monocytes 8.5 % (0.0-10.0); %Neutrophils 63.8 % (42.0-75.0); Hemoglobin 8.3 g/dL (12.0-16.0); Mean Corpuscular HGB CONC 31.9 g/dL (32.0-36.0); Mean Corpuscular Hemoglobin 25.2 pg (27.0-31.0); Mean Corpuscular Volume 78.8 fl (78.0-98.0); Mean Platelet Volume 10.9 fL (7.4-10.4); Platelet Count 262 10x3/uL (130-400); RBC Distribution Width 14.6 % (11.5-14.5)
[2022-12-30 05:00] LABS: ALT (SGPT) 8 U/L (8-55); AST (SGOT) 7 U/L (5-34); Albumin 2.9 g/dL (3.5-5.0); Alkaline Phosphatase 64 U/L (40-110); Anion Gap 13 mmol/L (10-20); BUN (Urea Nitrogen) 38 mg/dL (9.8-20.1); Bilirubin, Total 0.2 mg/dL (0.2-1.2); Calc. Creatinine Clearance 21 mL/min (70-130); Calcium 8.6 mg/dL (7.8-10.44); Carbon Dioxide 21 mmol/L (22-29); Chloride 107 mmol/L (98-107); Estimated GFR 10; Globulin 3.8 g/dL (2.4-3.5); Glucose 109 mg/dL (70-105); Potassium 3.3 mmol/L (3.5-5.1); Protein, Total 6.7 g/dL (6.0-8.3); Sodium 138 mmol/L (136-145)
[2022-12-30 05:01] LABS: Troponin I 0.016 ng/mL (< 0.028)
[2022-12-30] MEDS: Furosemide 100 MG/10 ML VIAL SLOW IVP SCH (06:03)
[2022-12-30] MEDS: HumaLOG 300 UNITS/3 ML VIAL SC SCH (07:39)
[2022-12-30] MEDS: Famotidine 20 MG TAB PO SCH (07:40)
[2022-12-30] MEDS: Rosuvastatin 10 MG TAB PO SCH (07:40)
[2022-12-30] MEDS: Escitalopram Oxalate 20 mg Tablet PO SCH (07:40)
[2022-12-30] MEDS: Heparin 5,000 UNITS/ML VIAL SC SCH ×3 (07:40→20:58)
[2022-12-30] MEDS: hydrALAZINE 25 MG TAB PO SCH ×3 (07:41→20:57)
[2022-12-30] MEDS: NIFEdipine XL 60 MG ER.TAB PO SCH (07:41)
[2022-12-30] MEDS ORDERED: Hydrochlorothiazide 25 MG TAB PO SCH (09:00)
[2022-12-30] MEDS ORDERED: SUMAtriptan Succinate 6 MG/0.5 ML VIAL SC PRN (09:36)
[2022-12-30] MEDS: Metoclopramide HCl 10 MG/2 ML VIAL IVP SCH ×2 (10:12→20:58)
[2022-12-30] MEDS: Carvedilol 6.25 MG TAB PO SCH ×2 (10:12→15:53)
[2022-12-30] MEDS ORDERED: Magnesium 2 GM/50 ML(in water) 2 GM in Premix Bag 1 BAG IVPB SCH (10:15)
[2022-12-30] MEDS ORDERED: Tuberculin PPD 0.1 ML VIAL I-DERMAL SCH (10:45)
[2022-12-30 11:14] LABS: Hep B Core Total Ab Non-Reactive (NonReactive); Hep B Core Total Index 0.07 S/CO (0-0.79)
[2022-12-30 11:15] LABS: HBSAg Index 0.24 S/CO (0-0.99); Hep B Surf Ag Non-Reactive S/CO (NonReactive)
[2022-12-30 11:16] LABS: HBSAB Concentration Less than 8.00 mIU/mL; Hep B Surf AB Non-Reactive (NonReactive); Hep C IgG Ab Non-Reactive S/CO (NonReactive); Hep C Index 0.14 S/CO (0-0.79)
[2022-12-30] MEDS ORDERED: Ondansetron PF 4 MG/2 ML Vial IVP PRN (13:19)
[2022-12-30] MEDS: Insulin Glargine 30 UNITS/0.3 ML VIAL SC SCH (20:58)
[2022-12-31 04:48] LABS: #Basophils 0.1 thou/uL (0.0-0.2); #Monocytes 0.7 thou/uL (0.11-0.59); %Basophils 0.5 % (0.0-1.0); %Eosinophils 0.4 % (0.0-10.0); %Lymphocytes 19.1 % (21.0-51.0); %Monocytes 6.9 % (0.0-10.0); %Neutrophils 72.7 % (42.0-75.0); Hemoglobin 7.7 g/dL (12.0-16.0); Mean Corpuscular HGB CONC 30.8 g/dL (32.0-36.0); Mean Corpuscular Hemoglobin 24.8 pg (27.0-31.0); Mean Corpuscular Volume 80.6 fl (78.0-98.0); Mean Platelet Volume 11.3 fL (7.4-10.4); Platelet Count 283 10x3/uL (130-400); RBC Distribution Width 14.8 % (11.5-14.5); White Blood Cell (WBC) Count 9.7 10x3/uL (4.8-10.8)
[2022-12-31 05:17] LABS: ALT (SGPT) Less than 7 U/L (8-55); AST (SGOT) 7 U/L (5-34); Albumin 2.7 g/dL (3.5-5.0); Alkaline Phosphatase 61 U/L (40-110); Anion Gap 13 mmol/L (10-20); BUN (Urea Nitrogen) 41 mg/dL (9.8-20.1); Bilirubin, Total 0.2 mg/dL (0.2-1.2); Calc. Creatinine Clearance 18 mL/min (70-130); Calcium 8.6 mg/dL (7.8-10.44); Carbon Dioxide 21 mmol/L (22-29); Chloride 108 mmol/L (98-107); Estimated GFR 9; Glucose 114 mg/dL (70-105); Potassium 3.8 mmol/L (3.5-5.1); Protein, Total 6.7 g/dL (6.0-8.3); Sodium 138 mmol/L (136-145)
[2022-12-31] MEDS ORDERED: EPINEPHrine 1 MG/ML AMP ONE (06:44)
[2022-12-31] MEDS ORDERED: Bupivacaine PF 0.5% 30 ML VIAL ONE (06:44)
[2022-12-31] MEDS ORDERED: Heparin 10,000 UNITS/ 10 ML VIAL ONE (06:44)
[2022-12-31] MEDS ORDERED: Lidocaine 2% PF 5 ML VIAL ONE (06:44)
[2022-12-31] MEDS ORDERED: CEFAZOLIN 2 GM VIAL ONE (07:25)
[2022-12-31] MEDS ORDERED: Sodium Chloride 0.9% 100 ML ONE (07:25)
[2022-12-31] MEDS ORDERED: PROPOFOL 200 MG/20 ML VIAL ONE (07:42)
[2022-12-31] MEDS ORDERED: Lidocaine 1% PF 5 ML VIAL ONE (07:42)
[2022-12-31] MEDS ORDERED: Acetaminophen 500 MG TAB PO PRN (07:52)
[2022-12-31] MEDS ORDERED: traMADol HCl 50 MG TAB PO PRN (07:52)
[2022-12-31] MEDS ORDERED: Acetaminophen 500 MG TAB PO SCH (08:00)
[2022-12-31] MEDS: Carvedilol 6.25 MG TAB PO SCH ×2 (08:00→17:12)
[2022-12-31] MEDS ORDERED: Promethazine HCl 25 MG/ML VIAL IM PRN (08:31)
[2022-12-31] MEDS ORDERED: Ondansetron HCl/PF 4 MG/2 ML Vial IVP PRN (08:31)
[2022-12-31] MEDS: NIFEdipine XL 60 MG ER.TAB PO SCH (09:00)
[2022-12-31] MEDS ORDERED: FLU VACC QS2023-24(6MOS UP)/PF 60 MCG/0.5 ML SYRINGE IM ONE (09:00)
[2022-12-31] MEDS: Famotidine 20 MG TAB PO SCH (09:00)
[2022-12-31] MEDS: Rosuvastatin 10 MG TAB PO SCH (09:00)
[2022-12-31] MEDS: hydrALAZINE 25 MG TAB PO SCH ×3 (09:00→20:51)
[2022-12-31] MEDS: Escitalopram Oxalate 20 mg Tablet PO SCH (09:00)
[2022-12-31] MEDS: Heparin 5,000 UNITS/ML VIAL SC SCH ×2 (10:17→17:13)
[2022-12-31] MEDS: Metoclopramide HCl 10 MG/2 ML VIAL IVP SCH ×2 (10:17→17:57)
[2022-12-31] MEDS ORDERED: Loperamide HCl 2 MG CAP PO PRN (12:41)
[2022-12-31] MEDS: Insulin Glargine 30 UNITS/0.3 ML VIAL SC SCH (20:52)
[2023-01-01 05:06] LABS: #Basophils 0.1 thou/uL (0.0-0.2); #Eosinphils 0.1 thou/uL (0.0-0.7); #Monocytes 0.8 thou/uL (0.11-0.59); #Neutrophils 5.2 thou/uL (1.40-6.50); %Basophils 0.6 % (0.0-1.0); %Eosinophils 1.6 % (0.0-10.0); %Lymphocytes 19.7 % (21.0-51.0); %Monocytes 10.6 % (0.0-10.0); %Neutrophils 67.1 % (42.0-75.0); Hematocrit 24.4 % (36.0-47.0); Hemoglobin 7.7 g/dL (12.0-16.0); Mean Corpuscular HGB CONC 31.6 g/dL (32.0-36.0); Mean Corpuscular Hemoglobin 25.5 pg (27.0-31.0); Mean Corpuscular Volume 80.8 fl (78.0-98.0); Platelet Count 259 10x3/uL (130-400); RBC Distribution Width 14.6 % (11.5-14.5); Red Blood Cell (RBC) Count 3.02 mill/uL (4.20-5.40); White Blood Cell (WBC) Count 7.7 10x3/uL (4.8-10.8)
[2023-01-01 05:29] LABS: Anion Gap 13 mmol/L (10-20); BUN (Urea Nitrogen) 28 mg/dL (9.8-20.1); Calc. Creatinine Clearance 22 mL/min (70-130); Calcium 8.3 mg/dL (7.8-10.44); Carbon Dioxide 24 mmol/L (22-29); Chloride 104 mmol/L (98-107); Estimated GFR 11; Glucose 158 mg/dL (70-105); Potassium 3.6 mmol/L (3.5-5.1); Sodium 137 mmol/L (136-145)
[2023-01-01] MEDS: Carvedilol 6.25 MG TAB PO SCH ×2 (08:00→15:29)
[2023-01-01] MEDS ORDERED: EPOETIN ALFA-EPBX (ESRD) 10,000 UNITS/ML VIAL SC ONE (09:00)
[2023-01-01] MEDS: hydrALAZINE 25 MG TAB PO SCH ×3 (09:00→19:59)
[2023-01-01] MEDS: NIFEdipine XL 60 MG ER.TAB PO SCH (10:10)
[2023-01-01] MEDS ORDERED: Acetaminophen 500 MG TAB PO PRN (11:00)
[2023-01-01] MEDS ORDERED: Epoetin (ESRD) 10,000 UNITS/ML VIAL SC SCH (12:00)
[2023-01-01] MEDS: Escitalopram Oxalate 20 mg Tablet PO SCH (14:04)
[2023-01-01] MEDS: Famotidine 20 MG TAB PO SCH (14:05)
[2023-01-01] MEDS: Rosuvastatin 10 MG TAB PO SCH (14:05)
[2023-01-01] MEDS ORDERED: EPOETIN ALFA-EPBX (ESRD) 10,000 UNITS/ML VIAL SC SCH (14:45)
[2023-01-01] MEDS: Insulin Glargine 30 UNITS/0.3 ML VIAL SC SCH (19:58)
[2023-01-02 04:53] LABS: #Eosinphils 0.2 thou/uL (0.0-0.7); #Monocytes 0.8 thou/uL (0.11-0.59); #Neutrophils 4.5 thou/uL (1.40-6.50); %Basophils 0.5 % (0.0-1.0); %Lymphocytes 25.4 % (21.0-51.0); %Monocytes 10.6 % (0.0-10.0); %Neutrophils 60.1 % (42.0-75.0); Hemoglobin 7.4 g/dL (12.0-16.0); Mean Corpuscular HGB CONC 30.8 g/dL (32.0-36.0); Mean Corpuscular Hemoglobin 24.7 pg (27.0-31.0); Mean Corpuscular Volume 80.3 fl (78.0-98.0); Mean Platelet Volume 10.9 fL (7.4-10.4); Platelet Count 261 10x3/uL (130-400); RBC Distribution Width 14.4 % (11.5-14.5); Red Blood Cell (RBC) Count 2.99 mill/uL (4.20-5.40); White Blood Cell (WBC) Count 7.6 10x3/uL (4.8-10.8)
[2023-01-02 05:13] LABS: Anion Gap 12 mmol/L (10-20); BUN (Urea Nitrogen) 35 mg/dL (9.8-20.1); Calc. Creatinine Clearance 18 mL/min (70-130); Calcium 8.4 mg/dL (7.8-10.44); Carbon Dioxide 25 mmol/L (22-29); Chloride 104 mmol/L (98-107); Estimated GFR 9; Glucose 124 mg/dL (70-105); Potassium 3.6 mmol/L (3.5-5.1); Sodium 137 mmol/L (136-145)
[2023-01-02] MEDS ORDERED: READ PPD TEST SITE PO SCH (09:00)
[2023-01-02] MEDS ORDERED: Regadenoson 0.4 MG/5 ML SYRINGE ONE (10:07)
[2023-01-02] MEDS: Carvedilol 6.25 MG TAB PO SCH ×2 (11:08→17:57)
[2023-01-02] MEDS: Famotidine 20 MG TAB PO SCH (11:09)
[2023-01-02] MEDS: NIFEdipine XL 60 MG ER.TAB PO SCH (11:09)
[2023-01-02] MEDS: hydrALAZINE 25 MG TAB PO SCH ×3 (11:09→21:15)
[2023-01-02] MEDS: Escitalopram Oxalate 20 mg Tablet PO SCH (11:09)
[2023-01-02] MEDS: Rosuvastatin 10 MG TAB PO SCH (11:09)
[2023-01-02] MEDS: Insulin Glargine 30 UNITS/0.3 ML VIAL SC SCH (21:14)
[2023-01-03 04:03] LABS: #Eosinphils 0.2 thou/uL (0.0-0.7); #Monocytes 0.9 thou/uL (0.11-0.59); #Neutrophils 4.5 thou/uL (1.40-6.50); %Basophils 0.5 % (0.0-1.0); %Eosinophils 2.9 % (0.0-10.0); %Lymphocytes 28.1 % (21.0-51.0); %Monocytes 11.4 % (0.0-10.0); %Neutrophils 56.2 % (42.0-75.0); Hematocrit 23.5 % (36.0-47.0); Hemoglobin 7.1 g/dL (12.0-16.0); Mean Corpuscular HGB CONC 30.2 g/dL (32.0-36.0); Mean Corpuscular Hemoglobin 24.6 pg (27.0-31.0); Mean Corpuscular Volume 81.3 fl (78.0-98.0); Mean Platelet Volume 10.5 fL (7.4-10.4); Platelet Count 248 10x3/uL (130-400); RBC Distribution Width 14.3 % (11.5-14.5); Red Blood Cell (RBC) Count 2.89 mill/uL (4.20-5.40)
[2023-01-03 04:26] LABS: Anion Gap 12 mmol/L (10-20); BUN (Urea Nitrogen) 40 mg/dL (9.8-20.1); Calc. Creatinine Clearance 16 mL/min (70-130); Calcium 8.3 mg/dL (7.8-10.44); Carbon Dioxide 25 mmol/L (22-29); Chloride 104 mmol/L (98-107); Estimated GFR 8; Glucose 127 mg/dL (70-105); Potassium 3.7 mmol/L (3.5-5.1); Sodium 137 mmol/L (136-145)
[2023-01-03] MEDS ORDERED: EPOETIN ALFA-EPBX (ESRD) 10,000 UNITS/ML VIAL IVP SCH (09:00)
[2023-01-03] MEDS: hydrALAZINE 25 MG TAB PO SCH ×3 (09:26→20:26)
[2023-01-03] MEDS: Famotidine 20 MG TAB PO SCH (09:26)
[2023-01-03] MEDS: Carvedilol 6.25 MG TAB PO SCH ×2 (09:27→16:42)
[2023-01-03] MEDS: Escitalopram Oxalate 20 mg Tablet PO SCH (09:27)
[2023-01-03] MEDS: Rosuvastatin 10 MG TAB PO SCH (09:27)
[2023-01-03] MEDS: NIFEdipine XL 60 MG ER.TAB PO SCH (09:27)
[2023-01-03] MEDS: Isosorbide Dinitrate 5 MG TAB PO SCH (20:26)
[2023-01-03] MEDS: Insulin Glargine 30 UNITS/0.3 ML VIAL SC SCH (20:32)
[2023-01-03] MEDS ORDERED: Isosorbide Dinitrate 20 MG TAB PO SCH (21:00)
[2023-01-04 05:34] LABS: #Basophils 0.1 thou/uL (0.0-0.2); #Eosinphils 0.3 thou/uL (0.0-0.7); #Neutrophils 4.7 thou/uL (1.40-6.50); %Basophils 0.6 % (0.0-1.0); %Eosinophils 2.9 % (0.0-10.0); %Lymphocytes 28.7 % (21.0-51.0); %Monocytes 11.8 % (0.0-10.0); %Neutrophils 54.6 % (42.0-75.0); Hematocrit 23.1 % (36.0-47.0); Mean Corpuscular HGB CONC 30.3 g/dL (32.0-36.0); Mean Corpuscular Hemoglobin 24.7 pg (27.0-31.0); Mean Corpuscular Volume 81.6 fl (78.0-98.0); Mean Platelet Volume 10.7 fL (7.4-10.4); Platelet Count 253 10x3/uL (130-400); Red Blood Cell (RBC) Count 2.83 mill/uL (4.20-5.40); White Blood Cell (WBC) Count 8.5 10x3/uL (4.8-10.8)
[2023-01-04] MEDS ORDERED: Aspirin 81 mg Enteric Coated Tablet PO SCH (09:00)
[2023-01-04] MEDS: hydrALAZINE 25 MG TAB PO SCH (10:14)
[2023-01-04] MEDS: Isosorbide Dinitrate 5 MG TAB PO SCH (10:14)
[2023-01-04] MEDS: Escitalopram Oxalate 20 mg Tablet PO SCH (10:14)
[2023-01-04] MEDS: Carvedilol 6.25 MG TAB PO SCH (10:15)
[2023-01-04] MEDS: Rosuvastatin 10 MG TAB PO SCH (10:16)
[2023-01-04] MEDS: NIFEdipine XL 60 MG ER.TAB PO SCH (10:16)
[2023-01-04] MEDS: Famotidine 20 MG TAB PO SCH (10:17)
[2023-01-04 15:23] VITALS: BP 178/79; TEMP 98.1
== END 2023-01-04 14:30 | disposition home or self-care (01) | DRG 673 ==
LOC: ERS 20:11 → 2SW 21:29 → OBSVTOIN 21:29
PROVIDERS: ADMIT Student in an Organized Health Care Education/Training Program; ATTEND Internal Medicine
PROC: 0JH63XZ Insertion of Tunneled Vascular Access Device into Chest Subcutaneous Tissue and Fascia, Percutaneous Approach (ICD-10-PCS; principal; 2022-12-31)
PROC: 02H633Z Insertion of Infusion Device into Right Atrium, Percutaneous Approach (ICD-10-PCS; 2022-12-31)
PROC: B5181ZA Fluoroscopy of Superior Vena Cava using Low Osmolar Contrast, Guidance (ICD-10-PCS; 2022-12-31)
PROC: B548ZZA Ultrasonography of Superior Vena Cava, Guidance (ICD-10-PCS; 2022-12-31)
PROC: 5A1D70Z Performance of Urinary Filtration, Intermittent, Less than 6 Hours Per Day (ICD-10-PCS; 2022-12-31)
PROC: 5A1D70Z Performance of Urinary Filtration, Intermittent, Less than 6 Hours Per Day (ICD-10-PCS; 2023-01-03)
DX: N17.9 Acute kidney failure, unspecified (principal); I50.33 Acute on chronic diastolic (congestive) heart failure; J96.01 Acute respiratory failure with hypoxia; I13.2 Hypertensive heart and chronic kidney disease with heart failure and with stage 5 chronic kidney disease, or end stage renal disease; J98.11 Atelectasis; N18.6 End stage renal disease; E78.5 Hyperlipidemia, unspecified; E11.21 Type 2 diabetes mellitus with diabetic nephropathy; F41.9 Anxiety disorder, unspecified; F32.A Depression, unspecified; E66.01 Morbid (severe) obesity due to excess calories; D72.829 Elevated white blood cell count, unspecified; D63.1 Anemia in chronic kidney disease; M19.90 Unspecified osteoarthritis, unspecified site; E11.42 Type 2 diabetes mellitus with diabetic polyneuropathy; N05.9 Unspecified nephritic syndrome with unspecified morphologic changes; E88.810 Metabolic syndrome; I20.9 Angina pectoris, unspecified; H35.60 Retinal hemorrhage, unspecified eye; G47.30 Sleep apnea, unspecified; E11.319 Type 2 diabetes mellitus with unspecified diabetic retinopathy without macular edema; Z88.0 Allergy status to penicillin; Z88.8 Allergy status to other drugs, medicaments and biological substances; Z79.899 Other long term (current) drug therapy; Z79.4 Long term (current) use of insulin; Z98.890 Other specified postprocedural states; Z90.710 Acquired absence of both cervix and uterus; Z90.49 Acquired absence of other specified parts of digestive tract; Z68.39 Body mass index [BMI] 39.0-39.9, adult; E88.09 Other disorders of plasma-protein metabolism, not elsewhere classified
CPT/HCPCS: 36415; 36416; 71045; 78452; 80048; 80053; 83036; 83735; 83880; 84145; 84443; 84484; 85025; 86580; 86704; 86850; 86900; 86901; 90935; 93005; 93017; 93798; 94760; 96374; 97139; A9500; C1751; C1752; G0257; J0171; J1642; J1644; J1815; J1940; J2001; J2405; J2704; J2765; J2785; J3475; J3490; Q5105; S0020

== ENCOUNTER 2023-01-26 23:15 | Inpatient (IN) | payer OTHER ==
[2023-01-26 23:46] LABS: #Basophils 0.1 thou/uL (0.0-0.2); #Eosinphils 0.3 thou/uL (0.0-0.7); #Monocytes 1.1 thou/uL (0.11-0.59); #Neutrophils 6.3 thou/uL (1.40-6.50); %Basophils 0.6 % (0.0-1.0); %Eosinophils 2.7 % (0.0-10.0); %Lymphocytes 24.8 % (21.0-51.0); %Monocytes 10.7 % (0.0-10.0); %Neutrophils 60.9 % (42.0-75.0); Hematocrit 29.2 % (36.0-47.0); Mean Corpuscular HGB CONC 30.8 g/dL (32.0-36.0); Mean Corpuscular Hemoglobin 24.9 pg (27.0-31.0); Mean Corpuscular Volume 80.7 fl (78.0-98.0); Mean Platelet Volume 10.6 fL (7.4-10.4); Platelet Count 300 10x3/uL (130-400); RBC Distribution Width 13.7 % (11.5-14.5); Red Blood Cell (RBC) Count 3.62 mill/uL (4.20-5.40); White Blood Cell (WBC) Count 10.3 10x3/uL (4.8-10.8)
[2023-01-27] LABS: PTT 29.3 sec (22.9-36.1); Prothrombin Time 13.5 sec (12.0-14.7)
[2023-01-27 00:10] LABS: ALT (SGPT) 9 U/L (8-55); AST (SGOT) 10 U/L (5-34); Albumin 4.2 g/dL (3.5-5.0); Alkaline Phosphatase 69 U/L (40-110); Anion Gap 14 mmol/L (10-20); BUN (Urea Nitrogen) 21 mg/dL (9.8-20.1); Bilirubin, Total 0.2 mg/dL (0.2-1.2); Calc. Creatinine Clearance 0 mL/min (70-130); Calcium 9.2 mg/dL (7.8-10.44); Carbon Dioxide 31 mmol/L (22-29); Chloride 97 mmol/L (98-107); Estimated GFR 15; Globulin 3.8 g/dL (2.4-3.5); Glucose 230 mg/dL (70-105); Potassium 3.4 mmol/L (3.5-5.1); Sodium 139 mmol/L (136-145)
[2023-01-27 00:12] LABS: Troponin I Less than 0.010 ng/mL (< 0.028)
[2023-01-27] MEDS ORDERED: Aspirin Chewable 81 MG TAB ONE (01:07)
[2023-01-27] MEDS ORDERED: Glucagon 1 MG/ML KIT IM PRN (03:24)
[2023-01-27] MEDS ORDERED: Dextrose 5% in Water 1,000 ML IV PRN (03:24)
[2023-01-27] MEDS ORDERED: HumaLOG 300 UNITS/3 ML VIAL SC PRN (03:24)
[2023-01-27] MEDS ORDERED: Dextrose 50% Abboject 50 ML SYRINGE SLOW IVP PRN (03:24)
[2023-01-27] MEDS ORDERED: Ondansetron ODT 4 MG TAB PO PRN (03:25)
[2023-01-27 03:56] LABS: Troponin I 0.011 ng/mL (< 0.028)
[2023-01-27 04:07] VITALS: BMI 37.0
[2023-01-27 05:46] LABS: #Basophils 0.1 thou/uL (0.0-0.2); #Eosinphils 0.2 thou/uL (0.0-0.7); #Monocytes 0.8 thou/uL (0.11-0.59); #Neutrophils 4.5 thou/uL (1.40-6.50); %Basophils 0.7 % (0.0-1.0); %Eosinophils 2.1 % (0.0-10.0); %Lymphocytes 24.5 % (21.0-51.0); %Monocytes 10.7 % (0.0-10.0); %Neutrophils 61.7 % (42.0-75.0); Hematocrit 26.6 % (36.0-47.0); Hemoglobin 8.1 g/dL (12.0-16.0); Mean Corpuscular HGB CONC 30.5 g/dL (32.0-36.0); Mean Corpuscular Volume 82.1 fl (78.0-98.0); Mean Platelet Volume 11.3 fL (7.4-10.4); Platelet Count 257 10x3/uL (130-400); RBC Distribution Width 13.6 % (11.5-14.5); Red Blood Cell (RBC) Count 3.24 mill/uL (4.20-5.40); White Blood Cell (WBC) Count 7.3 10x3/uL (4.8-10.8)
[2023-01-27 06:12] LABS: Anion Gap 14 mmol/L (10-20); BUN (Urea Nitrogen) 23 mg/dL (9.8-20.1); Calc. Creatinine Clearance 25 mL/min (70-130); Calcium 8.9 mg/dL (7.8-10.44); Carbon Dioxide 31 mmol/L (22-29); Chloride 98 mmol/L (98-107); Estimated GFR 14; Glucose 179 mg/dL (70-105); Sodium 140 mmol/L (136-145)
[2023-01-27 06:48] LABS: Troponin I 0.016 ng/mL (< 0.028)
[2023-01-27] MEDS ORDERED: hydrALAZINE 25 MG TAB PO SCH (09:00)
[2023-01-27] MEDS ORDERED: Potassium Bicarbonate/Cit Ac 20 MEQ TAB PO SCH (09:00)
[2023-01-27] MEDS ORDERED: NIFEdipine XL 60 MG ER.TAB PO SCH (09:00)
[2023-01-27] MEDS ORDERED: Isosorbide Dinitrate 20 MG TAB PO SCH (09:00)
[2023-01-27] MEDS ORDERED: Ergocalciferol 1.25 MG(50,000 UNITS) CAP PO SCH (09:00)
[2023-01-27] MEDS ORDERED: Carvedilol 6.25 MG TAB PO SCH (09:00)
[2023-01-27] MEDS: Escitalopram Oxalate 20 mg Tablet PO SCH (10:59)
[2023-01-27] MEDS: Famotidine 20 MG TAB PO SCH (10:59)
[2023-01-27] MEDS: Aspirin 81 mg Enteric Coated Tablet PO SCH (10:59)
[2023-01-27] MEDS: Rosuvastatin 10 MG TAB PO SCH (10:59)
[2023-01-27] MEDS: HumaLOG 300 UNITS/3 ML VIAL SC SCH ×3 (11:00→20:43)
[2023-01-27] MEDS: HumaLOG 300 UNITS/3 ML VIAL SC PRN ×2 (11:01→17:50)
[2023-01-27] MEDS ORDERED: Midodrine HCl 5 MG TAB PO SCH (15:00)
[2023-01-27] MEDS: Midodrine HCl 5 MG TAB PO SCH ×2 (15:36→20:42)
[2023-01-27] MEDS: Insulin Glargine 30 UNITS/0.3 ML VIAL SC SCH (20:42)
[2023-01-28] MEDS: Aspirin 81 mg Enteric Coated Tablet PO SCH (08:57)
[2023-01-28] MEDS: Famotidine 20 MG TAB PO SCH (08:58)
[2023-01-28] MEDS: Escitalopram Oxalate 20 mg Tablet PO SCH (08:58)
[2023-01-28] MEDS: Rosuvastatin 10 MG TAB PO SCH (08:58)
[2023-01-28] MEDS ORDERED: Carvedilol 6.25 MG TAB PO SCH ×2 (09:00→17:00)
[2023-01-28] MEDS ORDERED: NIFEdipine XL 60 MG ER.TAB PO SCH (09:00)
[2023-01-28] MEDS: HumaLOG 300 UNITS/3 ML VIAL SC SCH ×3 (09:01→21:42)
[2023-01-28] MEDS: Acetaminophen 325 MG TAB PO PRN ×2 (11:21→15:52)
[2023-01-28] MEDS: Fioricet 325/50/40 mg Tablet PO PRN (12:54)
[2023-01-28 13:28] LABS: #Basophils 0.1 thou/uL (0.0-0.2); #Eosinphils 0.2 thou/uL (0.0-0.7); #Monocytes 0.7 thou/uL (0.11-0.59); #Neutrophils 4.1 thou/uL (1.40-6.50); %Basophils 0.8 % (0.0-1.0); %Eosinophils 2.9 % (0.0-10.0); %Lymphocytes 23.8 % (21.0-51.0); %Monocytes 10.7 % (0.0-10.0); %Neutrophils 61.3 % (42.0-75.0); Hematocrit 34.7 % (36.0-47.0); Hemoglobin 10.5 g/dL (12.0-16.0); Mean Corpuscular HGB CONC 30.3 g/dL (32.0-36.0); Mean Corpuscular Hemoglobin 24.9 pg (27.0-31.0); Mean Corpuscular Volume 82.4 fl (78.0-98.0); Mean Platelet Volume 11.4 fL (7.4-10.4); Platelet Count 223 10x3/uL (130-400); RBC Distribution Width 13.7 % (11.5-14.5); Red Blood Cell (RBC) Count 4.21 mill/uL (4.20-5.40); White Blood Cell (WBC) Count 6.6 10x3/uL (4.8-10.8)
[2023-01-28 13:33] LABS: ALT (SGPT) Less than 7 U/L (8-55); AST (SGOT) 8 U/L (5-34); Albumin 3.6 g/dL (3.5-5.0); Alkaline Phosphatase 59 U/L (40-110); Anion Gap 13 mmol/L (10-20); BUN (Urea Nitrogen) 35 mg/dL (9.8-20.1); Bilirubin, Total 0.2 mg/dL (0.2-1.2); Calc. Creatinine Clearance 18 mL/min (70-130); Calcium 8.9 mg/dL (7.8-10.44); Carbon Dioxide 28 mmol/L (22-29); Chloride 101 mmol/L (98-107); Estimated GFR 10; Globulin 3.7 g/dL (2.4-3.5); Glucose 132 mg/dL (70-105); Potassium 3.9 mmol/L (3.5-5.1); Protein, Total 7.3 g/dL (6.0-8.3); Sodium 138 mmol/L (136-145)
[2023-01-28] MEDS: Carvedilol 3.125 MG TAB PO SCH (17:03)
[2023-01-28] MEDS: Insulin Glargine 30 UNITS/0.3 ML VIAL SC SCH (21:42)
[2023-01-29] MEDS: Acetaminophen 325 MG TAB PO PRN (03:24)
[2023-01-29] MEDS ORDERED: HYDROcodone/Acetaminophen 5/325 mg Tablet PO SCH (04:30)
[2023-01-29] MEDS: HumaLOG 300 UNITS/3 ML VIAL SC PRN (05:53)
[2023-01-29] MEDS: Fioricet 325/50/40 mg Tablet PO PRN (08:57)
[2023-01-29] MEDS: Aspirin 81 mg Enteric Coated Tablet PO SCH (08:58)
[2023-01-29] MEDS: Famotidine 20 MG TAB PO SCH (08:58)
[2023-01-29] MEDS: Carvedilol 3.125 MG TAB PO SCH ×2 (08:58→16:04)
[2023-01-29] MEDS: Escitalopram Oxalate 20 mg Tablet PO SCH (08:58)
[2023-01-29] MEDS: Rosuvastatin 10 MG TAB PO SCH (08:58)
[2023-01-29] MEDS ORDERED: NIFEdipine XL 30 MG ER.TAB PO SCH (09:00)
[2023-01-29] MEDS: HumaLOG 300 UNITS/3 ML VIAL SC SCH (12:35)
[2023-01-29] MEDS ORDERED: hydrALAZINE 10 MG TAB PO SCH (15:45)
[2023-01-29 16:21] VITALS: TEMP 98.4
[2023-01-29 17:09] VITALS: BP 168/77
== END 2023-01-29 17:35 | disposition home or self-care (01) | DRG 69 ==
LOC: ERS 23:15 → 2SE 01-27 02:15 → OBSVTOIN 01-28 12:09
PROVIDERS: ADMIT Student in an Organized Health Care Education/Training Program; ATTEND Internal Medicine
PROC: 5A1D70Z Performance of Urinary Filtration, Intermittent, Less than 6 Hours Per Day (ICD-10-PCS; principal; 2023-01-28)
DX: G45.9 Transient cerebral ischemic attack, unspecified (principal); N18.6 End stage renal disease; I13.2 Hypertensive heart and chronic kidney disease with heart failure and with stage 5 chronic kidney disease, or end stage renal disease; I50.32 Chronic diastolic (congestive) heart failure; G81.94 Hemiplegia, unspecified affecting left nondominant side; E11.22 Type 2 diabetes mellitus with diabetic chronic kidney disease; F41.9 Anxiety disorder, unspecified; F32.A Depression, unspecified; E66.01 Morbid (severe) obesity due to excess calories; G47.33 Obstructive sleep apnea (adult) (pediatric); D63.1 Anemia in chronic kidney disease; E87.6 Hypokalemia; I95.9 Hypotension, unspecified; G47.00 Insomnia, unspecified; Z82.49 Family history of ischemic heart disease and other diseases of the circulatory system; Z90.710 Acquired absence of both cervix and uterus; Z99.2 Dependence on renal dialysis; Z88.0 Allergy status to penicillin; Z88.8 Allergy status to other drugs, medicaments and biological substances; Z79.899 Other long term (current) drug therapy; Z79.4 Long term (current) use of insulin; Z79.82 Long term (current) use of aspirin; Z98.890 Other specified postprocedural states; Z90.49 Acquired absence of other specified parts of digestive tract
CPT/HCPCS: 36415; 36416; 70450; 70551; 71045; 80048; 80053; 84484; 85025; 85610; 85730; 90935; 93005; 93880; G0257; G0378; J1815; Q0162

== ENCOUNTER 2023-02-14 17:38 | Emergency (ER) | payer OTHER ==
[2023-02-14] MEDS ORDERED: Ondansetron ODT 4 MG TAB ONE (18:04)
[2023-02-14] MEDS ORDERED: Morphine 4 MG/ML VIAL ONE (18:04)
== END 2023-02-14 20:27 | disposition home or self-care (01) ==
LOC: ERS 17:38
DX: S16.1XXA Strain of muscle, fascia and tendon at neck level, initial encounter (principal); M62.838 Other muscle spasm; I13.2 Hypertensive heart and chronic kidney disease with heart failure and with stage 5 chronic kidney disease, or end stage renal disease; E11.22 Type 2 diabetes mellitus with diabetic chronic kidney disease; N18.6 End stage renal disease; I50.9 Heart failure, unspecified; Z99.2 Dependence on renal dialysis; Z79.4 Long term (current) use of insulin; V29.508A Other motorcycle passenger injured in collision with unspecified motor vehicles in traffic accident, initial encounter
CPT/HCPCS: 70450; 71045; 72125; 96372; J2270; Q0162

== ENCOUNTER 2023-03-03 05:34 | Day surgery (SDC) | payer OTHER ==
[2023-03-02 09:09] VITALS: BMI 38.0
[2023-03-03] MEDS ORDERED: Midazolam HCl 2 mg/2 ml Vial ONE (06:12)
[2023-03-03] MEDS ORDERED: Lidocaine 1% (PF) 30 ML VIAL ONE (06:12)
[2023-03-03] MEDS ORDERED: fentaNYL 50 mcg/mL 1 mL Vial ONE (06:12)
[2023-03-03] MEDS ORDERED: Verapamil 5 MG/2 ML VIAL ONE (06:12)
[2023-03-03] MEDS ORDERED: Adenosine 6 MG/2 ML VIAL ONE (06:12)
[2023-03-03] MEDS ORDERED: Heparin 10,000 UNITS/ 10 ML VIAL ONE ×2 (06:12→07:54)
[2023-03-03] MEDS ORDERED: Nitroglycerin 50 MG/250 ML BOT 250 ML ONE (06:13)
[2023-03-03 06:40] LABS: #Basophils 0.1 thou/uL (0.0-0.2); #Eosinphils 0.3 thou/uL (0.0-0.7); #Monocytes 0.8 thou/uL (0.11-0.59); #Neutrophils 5.3 thou/uL (1.40-6.50); %Basophils 0.9 % (0.0-1.0); %Eosinophils 3.2 % (0.0-10.0); %Monocytes 8.9 % (0.0-10.0); %Neutrophils 57.7 % (42.0-75.0); Hematocrit 30.3 % (36.0-47.0); Hemoglobin 9.4 g/dL (12.0-16.0); Mean Corpuscular Hemoglobin 25.6 pg (27.0-31.0); Mean Corpuscular Volume 82.6 fl (78.0-98.0); Platelet Count 288 10x3/uL (130-400); RBC Distribution Width 14.9 % (11.5-14.5); Red Blood Cell (RBC) Count 3.67 mill/uL (4.20-5.40); White Blood Cell (WBC) Count 9.2 10x3/uL (4.8-10.8)
[2023-03-03] MEDS ORDERED: Dextrose 50% Abboject 50 ML SYRINGE ONE (07:03)
[2023-03-03 07:07] LABS: Anion Gap 14 mmol/L (10-20); BUN (Urea Nitrogen) 33 mg/dL (9.8-20.1); Calc. Creatinine Clearance 22 mL/min (70-130); Calcium 9.1 mg/dL (7.8-10.44); Carbon Dioxide 28 mmol/L (22-29); Chloride 102 mmol/L (98-107); Estimated GFR 12; Glucose 65 mg/dL (70-105); Potassium 3.3 mmol/L (3.5-5.1); Sodium 141 mmol/L (136-145)
[2023-03-03] MEDS ORDERED: hydrALAZINE 20 MG/ML VIAL ONE ×2 (07:13→07:27)
[2023-03-03] MEDS ORDERED: Morphine 4 MG/ML VIAL ONE (07:22)
[2023-03-03] MEDS ORDERED: Ondansetron PF 4 MG/2 ML Vial ONE ×2 (08:19→08:41)
[2023-03-03] MEDS ORDERED: Clopidogrel Bisulfate 300 MG TAB ONE ×2 (08:26→08:51)
[2023-03-03] MEDS ORDERED: Bisacodyl 10 MG SUPP PR SCH (13:15)
[2023-03-03] MEDS ORDERED: Iopamidol 370 76% 100 ML VIAL ONE (13:28)
== END 2023-03-03 15:30 | disposition home or self-care (01) ==
LOC: CCL 05:34
PROVIDERS: ATTEND Internal Medicine Cardiovascular Disease
PROC: 02H Heart and Great Vessels, Insertion (ICD-10-PCS; principal; 2023-03-03)
DX: I13.2 Hypertensive heart and chronic kidney disease with heart failure and with stage 5 chronic kidney disease, or end stage renal disease (principal); I50.32 Chronic diastolic (congestive) heart failure; E11.22 Type 2 diabetes mellitus with diabetic chronic kidney disease; E11.42 Type 2 diabetes mellitus with diabetic polyneuropathy; N18.6 End stage renal disease; E78.5 Hyperlipidemia, unspecified; F15.90 Other stimulant use, unspecified, uncomplicated; Z99.2 Dependence on renal dialysis; Z88.0 Allergy status to penicillin; Z79.82 Long term (current) use of aspirin; Z79.4 Long term (current) use of insulin; Z79.899 Other long term (current) drug therapy
CPT/HCPCS: 36416; 80048; 85025; 85347; 92928; 92978; 92979; 93005; 93458; 93571; C1725; C1753; C1760; C1769; C1874; C1887; C1894; C9600; J0153; J0360; J1642; J1644; J2001; J2250; J2270; J2405; J3010; J7999

== ENCOUNTER 2023-05-18 10:22 | Inpatient (IN) | payer OTHER ==
[2023-05-18] MEDS ORDERED: Iopamidol-370 76% 500 ML MDV (1 ML CHARGE) ONE (10:46)
[2023-05-18 10:58] LABS: #Basophils 0.1 thou/uL (0.0-0.2); #Eosinphils 0.4 thou/uL (0.0-0.7); #Monocytes 0.9 thou/uL (0.11-0.59); #Neutrophils 8.1 thou/uL (1.40-6.50); %Basophils 0.5 % (0.0-1.0); %Eosinophils 3.2 % (0.0-10.0); %Monocytes 7.8 % (0.0-10.0); %Neutrophils 71.1 % (42.0-75.0); Hematocrit 42.1 % (36.0-47.0); Hemoglobin 12.9 g/dL (12.0-16.0); Mean Corpuscular HGB CONC 30.6 g/dL (32.0-36.0); Mean Corpuscular Hemoglobin 25.9 pg (27.0-31.0); Mean Corpuscular Volume 84.5 fl (78.0-98.0); Mean Platelet Volume 11.1 fL (7.4-10.4); Platelet Count 255 10x3/uL (130-400); RBC Distribution Width 15.8 % (11.5-14.5); Red Blood Cell (RBC) Count 4.98 mill/uL (4.20-5.40); White Blood Cell (WBC) Count 11.4 10x3/uL (4.8-10.8)
[2023-05-18 11:32] LABS: ALT (SGPT) 8 U/L (8-55); AST (SGOT) 12 U/L (5-34); Albumin 4.1 g/dL (3.5-5.0); Alkaline Phosphatase 101 U/L (40-110); Anion Gap 15 mmol/L (10-20); BUN (Urea Nitrogen) 51 mg/dL (9.8-20.1); Bilirubin, Total 0.4 mg/dL (0.2-1.2); Calc. Creatinine Clearance 0 mL/min (70-130); Calcium 9.1 mg/dL (7.8-10.44); Carbon Dioxide 23 mmol/L (22-29); Chloride 99 mmol/L (98-107); Estimated GFR 7; Globulin 4.4 g/dL (2.4-3.5); Glucose 345 mg/dL (70-105); Potassium 4.1 mmol/L (3.5-5.1); Protein, Total 8.5 g/dL (6.0-8.3); Sodium 133 mmol/L (136-145); Troponin I Less than 0.010 ng/mL (< 0.028)
[2023-05-18 12:44] LABS: Lipase 92 U/L (8-78); Magnesium 2.3 mg/dL (1.6-2.6)
[2023-05-18] MEDS ORDERED: Nitroglycerin 0.4 MG TAB 1 EACH ONE (12:48)
[2023-05-18] MEDS ORDERED: Aspirin Chewable 81 MG TAB ONE (12:48)
[2023-05-18] MEDS ORDERED: Ipratropium/Albuterol 3 ML NEB ONE (14:02)
[2023-05-18] MEDS ORDERED: Enoxaparin 100 MG (1 mL) SYRINGE SC SCH (15:45)
[2023-05-18] MEDS ORDERED: Ondansetron PF 4 MG/2 ML Vial IVP PRN (15:56)
[2023-05-18] MEDS ORDERED: Acetaminophen 650 MG Suppository PR PRN (15:56)
[2023-05-18] MEDS ORDERED: Ondansetron ODT 4 MG TAB PO PRN (15:56)
[2023-05-18] MEDS ORDERED: Dextrose 50% Abboject 50 ML SYRINGE SLOW IVP PRN (16:26)
[2023-05-18] MEDS ORDERED: Dextrose 5% in Water 1,000 ML IV PRN (16:26)
[2023-05-18] MEDS ORDERED: Glucagon 1 MG/ML KIT IM PRN (16:26)
[2023-05-18] MEDS ORDERED: Heparin 10,000 UNITS/ 10 ML VIAL SLOW IVP SCH (18:30)
[2023-05-18 18:31] LABS: Troponin I Less than 0.010 ng/mL (< 0.028)
[2023-05-18 19:14] LABS: PTT 30.5 sec (22.9-36.1)
[2023-05-18 19:15] LABS: INR-International Normal Ratio 1.1; Prothrombin Time 14.3 sec (12.0-14.7)
[2023-05-18] MEDS ORDERED: Heparin 25,000 units/D5W 500 ML ONE (19:43)
[2023-05-18] MEDS: Heparin 25,000 units/D5W 500 ML IVPB SCH (20:05)
[2023-05-18] MEDS ORDERED: HYDROcodone/Acetaminophen 5/325 mg Tablet ONE ×2 (20:20→23:05)
[2023-05-18] MEDS ORDERED: Ondansetron PF 4 MG/2 ML Vial ONE (20:21)
[2023-05-18] MEDS: HYDROcodone/Acetaminophen 5/325 mg Tablet PO SCH (23:25)
[2023-05-18] MEDS: Insulin Glargine 30 UNITS/0.3 ML VIAL SC SCH (23:53)
[2023-05-18] MEDS: Insulin Regular 300 UNITS/3 ML VIAL SC PRN (23:54)
[2023-05-19 02:38] LABS: PTT 216.2 sec (22.9-36.1)
[2023-05-19] MEDS: Acetaminophen 325 MG TAB PO PRN (03:21)
[2023-05-19 03:38] VITALS: BMI 39.6
[2023-05-19] MEDS: hydrALAZINE 20 MG/ML VIAL SLOW IVP SCH (03:48)
[2023-05-19 04:50] LABS: #Basophils 0.1 thou/uL (0.0-0.2); #Eosinphils 0.3 thou/uL (0.0-0.7); #Monocytes 0.9 thou/uL (0.11-0.59); #Neutrophils 5.9 thou/uL (1.40-6.50); %Basophils 0.7 % (0.0-1.0); %Eosinophils 3.4 % (0.0-10.0); %Lymphocytes 21.5 % (21.0-51.0); %Monocytes 9.3 % (0.0-10.0); %Neutrophils 64.7 % (42.0-75.0); Hematocrit 37.3 % (36.0-47.0); Hemoglobin 11.6 g/dL (12.0-16.0); Mean Corpuscular HGB CONC 31.1 g/dL (32.0-36.0); Mean Corpuscular Hemoglobin 25.8 pg (27.0-31.0); Mean Corpuscular Volume 82.9 fl (78.0-98.0); Mean Platelet Volume 10.4 fL (7.4-10.4); Platelet Count 200 10x3/uL (130-400); RBC Distribution Width 15.6 % (11.5-14.5); White Blood Cell (WBC) Count 9.2 10x3/uL (4.8-10.8)
[2023-05-19 05:17] LABS: Anion Gap 17 mmol/L (10-20); BUN (Urea Nitrogen) 60 mg/dL (9.8-20.1); Calc. Creatinine Clearance 14 mL/min (70-130); Calcium 8.4 mg/dL (7.8-10.44); Carbon Dioxide 20 mmol/L (22-29); Chloride 102 mmol/L (98-107); Estimated GFR 7; Glucose 184 mg/dL (70-105); Sodium 135 mmol/L (136-145)
[2023-05-19] MEDS: Morphine 2 MG/ML VIAL SLOW IVP SCH (05:43)
[2023-05-19] MEDS: NIFEdipine XL 60 MG ER.TAB PO SCH ×2 (05:44→21:17)
[2023-05-19] MEDS: Insulin Regular 300 UNITS/3 ML VIAL SC PRN ×2 (06:11→17:35)
[2023-05-19 06:46] LABS: Troponin I Less than 0.010 ng/mL (< 0.028)
[2023-05-19] MEDS: Carvedilol 3.125 MG TAB PO SCH (08:17)
[2023-05-19] MEDS: Rosuvastatin 10 MG TAB PO SCH (08:17)
[2023-05-19] MEDS: hydrALAZINE 25 MG TAB PO SCH ×2 (08:17→17:30)
[2023-05-19] MEDS ORDERED: NIFEdipine XL 60 MG ER.TAB PO SCH (09:00)
[2023-05-19] MEDS ORDERED: Labetalol HCl 100 MG/20 ML VIAL SLOW IVP PRN (09:38)
[2023-05-19] MEDS: Aspirin 81 mg Enteric Coated Tablet PO SCH (10:10)
[2023-05-19] MEDS: Clopidogrel Bisulfate 75 MG TAB PO SCH (14:00)
[2023-05-19] MEDS ORDERED: Cyclobenzaprine 10 MG TAB PO PRN (17:24)
[2023-05-19] MEDS ORDERED: hydrALAZINE 25 MG TAB PO SCH (21:00)
[2023-05-19] MEDS: Apixaban 5 MG TAB PO SCH (21:17)
[2023-05-19] MEDS: Isosorbide Dinitrate 5 MG TAB PO SCH (21:18)
[2023-05-20 04:27] LABS: #Basophils 0.1 thou/uL (0.0-0.2); #Eosinphils 0.3 thou/uL (0.0-0.7); #Monocytes 0.7 thou/uL (0.11-0.59); #Neutrophils 5.9 thou/uL (1.40-6.50); %Basophils 0.6 % (0.0-1.0); %Eosinophils 3.2 % (0.0-10.0); %Lymphocytes 17.6 % (21.0-51.0); %Monocytes 8.5 % (0.0-10.0); %Neutrophils 69.7 % (42.0-75.0); Hematocrit 35.7 % (36.0-47.0); Hemoglobin 11.1 g/dL (12.0-16.0); Mean Corpuscular HGB CONC 31.1 g/dL (32.0-36.0); Mean Corpuscular Volume 83.6 fl (78.0-98.0); Mean Platelet Volume 11.1 fL (7.4-10.4); Platelet Count 218 10x3/uL (130-400); RBC Distribution Width 15.9 % (11.5-14.5); Red Blood Cell (RBC) Count 4.27 mill/uL (4.20-5.40); White Blood Cell (WBC) Count 8.5 10x3/uL (4.8-10.8)
[2023-05-20 04:56] LABS: Anion Gap 19 mmol/L (10-20); BUN (Urea Nitrogen) 77 mg/dL (9.8-20.1); Calc. Creatinine Clearance 13 mL/min (70-130); Calcium 8.5 mg/dL (7.8-10.44); Carbon Dioxide 20 mmol/L (22-29); Chloride 104 mmol/L (98-107); Estimated GFR 6; Glucose 148 mg/dL (70-105); Potassium 4.9 mmol/L (3.5-5.1); Sodium 138 mmol/L (136-145)
[2023-05-20] MEDS ORDERED: Aspirin 81 mg Enteric Coated Tablet PO SCH (09:00)
[2023-05-20 09:09] VITALS: TEMP 99.1
[2023-05-20] MEDS: Clopidogrel Bisulfate 75 MG TAB PO SCH (09:12)
[2023-05-20] MEDS: Sertraline 25 MG TAB PO SCH (09:13)
[2023-05-20 09:44] LABS: HBSAB Concentration Less than 8.00 mIU/mL; HBSAg Index 0.31 S/CO (0-0.99); Hep B Core Total Ab Non-Reactive (NonReactive); Hep B Core Total Index 0.07 S/CO (0-0.79); Hep B Surf AB Non-Reactive (NonReactive); Hep B Surf Ag Non-Reactive S/CO (NonReactive); Hep C IgG Ab Non-Reactive S/CO (NonReactive); Hep C Index 0.18 S/CO (0-0.79)
[2023-05-20] MEDS: Apixaban 5 MG TAB PO SCH (10:37)
[2023-05-20 17:02] VITALS: BP 148/71
[2023-05-22] MEDS ORDERED: FLU VACC QS2023-24(6MOS UP)/PF 60 MCG/0.5 ML SYRINGE IM ONE (04:00)
[2023-05-26] MEDS ORDERED: Apixaban 5 MG TAB PO SCH (21:00)
== END 2023-05-20 17:10 | disposition home or self-care (01) | DRG 175 ==
LOC: ERS 10:22 → ERHOLD 14:09 → 2NO 14:36 → OBSVTOIN 05-19 16:02
PROVIDERS: ADMIT Internal Medicine; ATTEND Internal Medicine
PROC: 5A1D70Z Performance of Urinary Filtration, Intermittent, Less than 6 Hours Per Day (ICD-10-PCS; principal; 2023-05-19)
DX: I26.99 Other pulmonary embolism without acute cor pulmonale (principal); N18.6 End stage renal disease; I13.2 Hypertensive heart and chronic kidney disease with heart failure and with stage 5 chronic kidney disease, or end stage renal disease; I50.32 Chronic diastolic (congestive) heart failure; F41.9 Anxiety disorder, unspecified; F32.A Depression, unspecified; E11.22 Type 2 diabetes mellitus with diabetic chronic kidney disease; E78.5 Hyperlipidemia, unspecified; E66.9 Obesity, unspecified; I25.10 Atherosclerotic heart disease of native coronary artery without angina pectoris; Z95.818 Presence of other cardiac implants and grafts; Z99.2 Dependence on renal dialysis; Z88.0 Allergy status to penicillin; Z88.8 Allergy status to other drugs, medicaments and biological substances; Z79.899 Other long term (current) drug therapy; Z79.4 Long term (current) use of insulin; Z79.82 Long term (current) use of aspirin; Z90.710 Acquired absence of both cervix and uterus; Z98.890 Other specified postprocedural states; Z90.49 Acquired absence of other specified parts of digestive tract; Z82.49 Family history of ischemic heart disease and other diseases of the circulatory system; Z90.721 Acquired absence of ovaries, unilateral; Z68.39 Body mass index [BMI] 39.0-39.9, adult
CPT/HCPCS: 36415; 36416; 71045; 71275; 80048; 80053; 83690; 83735; 83880; 84484; 85025; 85379; 85610; 85730; 86704; 93005; 93306; 96374; 96375; 96376; G0378; J0360; J1644; J1815; J2272; J2405; J7620; Q9967

== ENCOUNTER 2023-10-02 11:49 | Emergency (ER) | payer OTHER ==
[2023-10-02] MEDS ORDERED: Morphine 4 MG/ML VIAL ONE (12:22)
[2023-10-02] MEDS ORDERED: Ondansetron PF 4 MG/2 ML Vial ONE (12:22)
[2023-10-02 12:33] LABS: #Basophils 0.06 10x3/uL (0.0-0.2); %Basophils 0.7 % (0.0-1.0); %Eosinophils 3.8 % (0.0-10.0); %Lymphocytes 15.6 % (21.0-51.0); %Monocytes 10.7 % (0.0-10.0); %Neutrophils 68.9 % (42.0-75.0); Hematocrit 38.9 % (36.0-47.0); Hemoglobin 12.3 g/dL (12.0-16.0); Mean Corpuscular HGB CONC 31.6 g/dL (32.0-36.0); Mean Corpuscular Hemoglobin 26.5 pg (27.0-31.0); Mean Corpuscular Volume 83.7 fL (78.0-98.0); Mean Platelet Volume 10.9 fL (7.4-10.4); Platelet Count 231 10x3/uL (130-400); RBC Distribution Width 15.1 % (11.5-14.5); Red Blood Cell (RBC) Count 4.65 mill/uL (4.20-5.40)
[2023-10-02 12:38] LABS: Bacteria/HPF None Seen HPF (None Seen); Bilirubin Negative (Negative); Blood, Urine 1+ (Negative); CAUTI Indications for Culture Pelvic or flank pain; Clarity Clear (Clear); Glucose, Urine (Dipstick) 200 mg/dL (Negative); Ketone, Urine Negative (Negative); Leukocyte Negative Leu/uL (Negative); Nitrite Negative (Negative); Protein, Urine (Dipstick) 300 mg/dL (Neg-Trace); RBC/HPF 0-3 HPF (0-3); Specific Gravity, Urine 1.012 (1.002-1.036); Squamous Epithelial None Seen HPF (0-3); Urobilinogen Normal mg/dL (Less than 2); WBC/HPF 0-3 HPF (0-3); pH, Urine 6.5 (5.0-9.0)
[2023-10-02 12:39] LABS: Urine Culture Reflex No No
[2023-10-02 12:53] LABS: ALT (SGPT) 7 U/L (8-55); AST (SGOT) 14 U/L (5-34); Albumin 3.4 g/dL (3.5-5.0); Alkaline Phosphatase 69 U/L (40-110); Anion Gap 19 mmol/L (10-20); BUN (Urea Nitrogen) 83 mg/dL (9.8-20.1); Bilirubin, Total 0.5 mg/dL (0.2-1.2); Calc. Creatinine Clearance 0 mL/min (70-130); Calcium 8.5 mg/dL (7.8-10.44); Carbon Dioxide 18 mmol/L (22-29); Chloride 106 mmol/L (98-107); Estimated GFR 5; Globulin 5.1 g/dL (2.4-3.5); Glucose 141 mg/dL (70-105); Lipase 61 U/L (8-78); Potassium 4.6 mmol/L (3.5-5.1); Protein, Total 8.5 g/dL (6.0-8.3); Sodium 138 mmol/L (136-145)
== END 2023-10-02 14:10 | disposition home or self-care (01) ==
LOC: ERS 11:49
DX: R10.84 Generalized abdominal pain (principal); I12.0 Hypertensive chronic kidney disease with stage 5 chronic kidney disease or end stage renal disease; E11.22 Type 2 diabetes mellitus with diabetic chronic kidney disease; N18.6 End stage renal disease; E11.42 Type 2 diabetes mellitus with diabetic polyneuropathy; Z99.2 Dependence on renal dialysis; Z55.6 Problems related to health literacy; Z86.73 Personal history of transient ischemic attack (TIA), and cerebral infarction without residual deficits; Z79.899 Other long term (current) drug therapy
CPT/HCPCS: 74176; 80053; 81001; 83690; 85025; 96374; 96375; J2270; J2405

== ENCOUNTER 2024-03-29 10:05 | Inpatient (IN) | payer OTHER ==
[~2024-03-29 10:05] MED LIST changes: +Heparin 10,000 UNITS/ 10 ML VIAL ONE; -Iopamidol-370 76% 500 ML 1 ML ONE
[2024-03-29 10:33] LABS: %Basophils 0.8 % (0.0-1.0); %Eosinophils 2.8 % (0.0-10.0); %Lymphocytes 18.9 % (21.0-51.0); %Monocytes 8.2 % (0.0-10.0); %Neutrophils 68.5 % (42.0-75.0); Hematocrit 31.3 % (36.0-47.0); Hemoglobin 10.2 g/dL (12.0-16.0); Mean Corpuscular HGB CONC 32.6 g/dL (32.0-36.0); Mean Corpuscular Hemoglobin 27.1 pg (27.0-31.0); Mean Platelet Volume 10.8 fL (7.4-10.4); Platelet Count 320 10x3/uL (130-400); RBC Distribution Width 15.5 % (11.5-14.5); Red Blood Cell (RBC) Count 3.77 mill/uL (4.20-5.40)
[2024-03-29 10:54] LABS: ALT (SGPT) 6 U/L (8-55); AST (SGOT) 8 U/L (5-34); Albumin 3.4 g/dL (3.5-5.0); Alkaline Phosphatase 59 U/L (40-110); Anion Gap 19 mmol/L (10-20); BUN (Urea Nitrogen) 55 mg/dL (9.8-20.1); Bilirubin, Total 0.4 mg/dL (0.2-1.2); Calc. Creatinine Clearance 0 mL/min (70-130); Calcium 8.6 mg/dL (7.8-10.44); Carbon Dioxide 25 mmol/L (22-29); Chloride 99 mmol/L (98-107); Estimated GFR 6; Globulin 5.1 g/dL (2.4-3.5); Glucose 132 mg/dL (70-105); Potassium 3.4 mmol/L (3.5-5.1); Protein, Total 8.5 g/dL (6.0-8.3); Sodium 140 mmol/L (136-145)
[2024-03-29 11:10] LABS: Troponin I 0.066 ng/mL (< 0.028)
[2024-03-29] MEDS ORDERED: Aspirin Chewable 81 MG TAB ONE (12:08)
[2024-03-29] MEDS ORDERED: Nitroglycerin 2% Ointment 1 INCH/1 GM Packet ONE (12:08)
[2024-03-29] MEDS ORDERED: Dextrose 5% in Water 1,000 ML IV PRN (12:15)
[2024-03-29] MEDS ORDERED: Dextrose 50% Abboject 50 ML SYRINGE SLOW IVP PRN (12:15)
[2024-03-29] MEDS ORDERED: Glucagon 1 MG/ML KIT IM PRN (12:15)
[2024-03-29] MEDS ORDERED: Insulin Regular, Human 100 UNIT/ML 10 ML VIAL SC PRN (12:15)
[2024-03-29] MEDS: Isosorbide Dinitrate 20 MG TAB PO SCH (14:55)
[2024-03-29 15:14] LABS: Troponin I 0.062 ng/mL (< 0.028)
[2024-03-29 15:30] LABS: Hep B Surf Ag NONREACTIVE S/CO (NonReactive)
[2024-03-29 16:18] LABS: HBSAB Concentration Less than 8.00 mIU/mL; HBsAg Index 0.36 S/CO (0-0.99); Hep B Core Total Ab NONREACTIVE (NonReactive); Hep B Surf AB NONREACTIVE (NonReactive); Hep C IgG Ab NONREACTIVE S/CO (NonReactive); Hep C Index 0.12 S/CO (0-0.79)
[2024-03-29 18:39] LABS: Troponin I 0.055 ng/mL (< 0.028)
[2024-03-29] MEDS: Acetaminophen 325 MG TAB PO PRN (21:01)
[2024-03-29] MEDS: NIFEdipine XL 60 MG ER.TAB PO SCH (21:02)
[2024-03-29] MEDS: Carvedilol 6.25 MG TAB PO SCH (21:02)
[2024-03-29] MEDS: Apixaban 5 MG TAB PO SCH (21:03)
[2024-03-29] MEDS ORDERED: traMADol HCl 50 MG TAB PO SCH (21:30)
[2024-03-29] MEDS ORDERED: Lidocaine 4% Patch TD SCH (21:30)
[2024-03-29] MEDS: Insulin Glargine 30 UNITS/0.3 ML VIAL SC SCH (23:21)
[2024-03-30 05:31] VITALS: BMI 35.9
[2024-03-30 05:32] LABS: #Basophils 0.08 10x3/uL (0.0-0.2); %Basophils 0.9 % (0.0-1.0); %Eosinophils 4.1 % (0.0-10.0); %Lymphocytes 23.2 % (21.0-51.0); %Monocytes 8.3 % (0.0-10.0); Hematocrit 29.9 % (36.0-47.0); Hemoglobin 9.4 g/dL (12.0-16.0); Mean Corpuscular HGB CONC 31.4 g/dL (32.0-36.0); Mean Corpuscular Hemoglobin 26.7 pg (27.0-31.0); Mean Corpuscular Volume 84.9 fL (78.0-98.0); Mean Platelet Volume 11.1 fL (7.4-10.4); Platelet Count 287 10x3/uL (130-400); RBC Distribution Width 15.8 % (11.5-14.5); Red Blood Cell (RBC) Count 3.52 mill/uL (4.20-5.40)
[2024-03-30 05:51] LABS: Anion Gap 12 mmol/L (10-20); BUN (Urea Nitrogen) 26 mg/dL (9.8-20.1); Calc. Creatinine Clearance 19 mL/min (70-130); Calcium 8.5 mg/dL (7.8-10.44); Carbon Dioxide 28 mmol/L (22-29); Chloride 101 mmol/L (98-107); Estimated GFR 10; Glucose 162 mg/dL (70-105); Potassium 3.8 mmol/L (3.5-5.1); Sodium 137 mmol/L (136-145)
[2024-03-30] MEDS: Clopidogrel Bisulfate 75 MG TAB PO SCH (08:05)
[2024-03-30] MEDS ORDERED: LIDOCAINE Patch Removal TOP SCH (09:30)
[2024-03-30] MEDS: Aspirin 81 mg Enteric Coated Tablet PO SCH (15:25)
[2024-03-31 05:29] LABS: #Basophils 0.05 10x3/uL (0.0-0.2); %Basophils 0.5 % (0.0-1.0); %Eosinophils 3.6 % (0.0-10.0); %Lymphocytes 23.8 % (21.0-51.0); %Monocytes 8.9 % (0.0-10.0); %Neutrophils 62.7 % (42.0-75.0); Hematocrit 30.2 % (36.0-47.0); Hemoglobin 9.3 g/dL (12.0-16.0); Mean Corpuscular HGB CONC 30.8 g/dL (32.0-36.0); Mean Corpuscular Hemoglobin 26.4 pg (27.0-31.0); Mean Corpuscular Volume 85.8 fL (78.0-98.0); Mean Platelet Volume 11.1 fL (7.4-10.4); Platelet Count 302 10x3/uL (130-400); RBC Distribution Width 15.9 % (11.5-14.5); Red Blood Cell (RBC) Count 3.52 mill/uL (4.20-5.40)
[2024-03-31 05:39] LABS: Anion Gap 16 mmol/L (10-20); BUN (Urea Nitrogen) 42 mg/dL (9.8-20.1); Calc. Creatinine Clearance 14 mL/min (70-130); Carbon Dioxide 24 mmol/L (22-29); Chloride 102 mmol/L (98-107); Estimated GFR 7; Glucose 139 mg/dL (70-105); Potassium 3.9 mmol/L (3.5-5.1); Sodium 138 mmol/L (136-145)
[2024-03-31] MEDS ORDERED: Aspirin 81 mg Enteric Coated Tablet PO SCH (09:00)
[2024-03-31] MEDS ORDERED: Heparin 10,000 UNITS/ 10 ML VIAL ONE (09:58)
[2024-03-31] MEDS: Melatonin 3 MG TAB PO PRN (23:58)
[2024-04-01 04:45] LABS: #Basophils 0.06 10x3/uL (0.0-0.2); %Basophils 0.6 % (0.0-1.0); %Eosinophils 3.5 % (0.0-10.0); %Lymphocytes 18.5 % (21.0-51.0); %Monocytes 9.7 % (0.0-10.0); %Neutrophils 67.2 % (42.0-75.0); Hematocrit 31.7 % (36.0-47.0); Hemoglobin 9.8 g/dL (12.0-16.0); Mean Corpuscular HGB CONC 30.9 g/dL (32.0-36.0); Mean Corpuscular Hemoglobin 26.6 pg (27.0-31.0); Mean Corpuscular Volume 85.9 fL (78.0-98.0); Mean Platelet Volume 10.9 fL (7.4-10.4); Platelet Count 321 10x3/uL (130-400); RBC Distribution Width 15.9 % (11.5-14.5); Red Blood Cell (RBC) Count 3.69 mill/uL (4.20-5.40)
[2024-04-01 05:00] LABS: Anion Gap 13 mmol/L (10-20); BUN (Urea Nitrogen) 29 mg/dL (9.8-20.1); Calc. Creatinine Clearance 19 mL/min (70-130); Calcium 8.5 mg/dL (7.8-10.44); Carbon Dioxide 26 mmol/L (22-29); Chloride 102 mmol/L (98-107); Estimated GFR 10; Glucose 130 mg/dL (70-105); Sodium 137 mmol/L (136-145)
[2024-04-01] MEDS ORDERED: Regadenoson 0.4 MG/5 ML SYRINGE ONE (09:01)
[2024-04-01 16:48] VITALS: BP 149/72; TEMP 98
[2024-04-01] MEDS: Sacubitril 24MG/Valsartan 26 MG TAB PO SCH (19:14)
== END 2024-04-01 19:31 | disposition home or self-care (01) | DRG 291 ==
LOC: ERS 10:05 → OBS 12:48 → OBSVTOIN 03-30 14:29
PROVIDERS: ADMIT Internal Medicine; ATTEND Internal Medicine
PROC: 5A1D70Z Performance of Urinary Filtration, Intermittent, Less than 6 Hours Per Day (ICD-10-PCS; principal; 2024-03-30)
DX: I13.2 Hypertensive heart and chronic kidney disease with heart failure and with stage 5 chronic kidney disease, or end stage renal disease (principal); I50.33 Acute on chronic diastolic (congestive) heart failure; N18.6 End stage renal disease; E11.22 Type 2 diabetes mellitus with diabetic chronic kidney disease; I25.10 Atherosclerotic heart disease of native coronary artery without angina pectoris; I50.32 Chronic diastolic (congestive) heart failure; F41.9 Anxiety disorder, unspecified; I27.20 Pulmonary hypertension, unspecified; M94.0 Chondrocostal junction syndrome [Tietze]; F32.A Depression, unspecified; E87.6 Hypokalemia; E78.5 Hyperlipidemia, unspecified; I25.5 Ischemic cardiomyopathy; E11.42 Type 2 diabetes mellitus with diabetic polyneuropathy; Z79.02 Long term (current) use of antithrombotics/antiplatelets; Z99.2 Dependence on renal dialysis; Z95.5 Presence of coronary angioplasty implant and graft; Z86.711 Personal history of pulmonary embolism; Z79.01 Long term (current) use of anticoagulants; Z88.0 Allergy status to penicillin; Z88.8 Allergy status to other drugs, medicaments and biological substances; Z90.710 Acquired absence of both cervix and uterus; Z90.49 Acquired absence of other specified parts of digestive tract; Z79.899 Other long term (current) drug therapy
CPT/HCPCS: 36415; 36416; 71045; 78452; 80048; 80053; 83880; 84484; 85025; 86704; 86706; 86803; 87340; 93005; 93017; 93306; A9502; J1644; J1815; J2785

== ENCOUNTER 2024-04-12 15:32 | Inpatient (IN) | payer OTHER ==
[2024-04-12 17:06] LABS: #Basophils 0.11 10x3/uL (0.0-0.2); %Basophils 1.1 % (0.0-1.0); %Eosinophils 1.9 % (0.0-10.0); %Lymphocytes 17.2 % (21.0-51.0); %Monocytes 9.8 % (0.0-10.0); %Neutrophils 69.6 % (42.0-75.0); Hematocrit 31.1 % (36.0-47.0); Mean Corpuscular HGB CONC 32.2 g/dL (32.0-36.0); Mean Corpuscular Hemoglobin 26.9 pg (27.0-31.0); Mean Corpuscular Volume 83.6 fL (78.0-98.0); Mean Platelet Volume 10.4 fL (7.4-10.4); Platelet Count 264 10x3/uL (130-400); RBC Distribution Width 15.8 % (11.5-14.5); Red Blood Cell (RBC) Count 3.72 mill/uL (4.20-5.40)
[2024-04-12 17:43] LABS: Troponin I 2.052 ng/mL (< 0.028)
[2024-04-12 18:05] LABS: ALT (SGPT) 5 U/L (8-55); AST (SGOT) 10 U/L (5-34); Albumin 3.2 g/dL (3.5-5.0); Alkaline Phosphatase 56 U/L (40-110); Anion Gap 18 mmol/L (10-20); BUN (Urea Nitrogen) 32 mg/dL (9.8-20.1); Bilirubin, Total 0.7 mg/dL (0.2-1.2); Calc. Creatinine Clearance 0 mL/min (70-130); Calcium 8.9 mg/dL (7.8-10.44); Carbon Dioxide 28 mmol/L (22-29); Chloride 95 mmol/L (98-107); Estimated GFR 8; Globulin 5.4 g/dL (2.4-3.5); Glucose 199 mg/dL (70-105); Lipase 24 U/L (8-78); Magnesium 2.2 mg/dL (1.6-2.6); Potassium 3.2 mmol/L (3.5-5.1); Protein, Total 8.6 g/dL (6.0-8.3); Sodium 138 mmol/L (136-145)
[2024-04-12] MEDS ORDERED: Aspirin Chewable 81 MG TAB ONE (18:17)
[2024-04-12] MEDS ORDERED: Heparin 5,000 UNITS/ML VIAL ONE (18:18)
[2024-04-12] MEDS ORDERED: Heparin 25,000 units/D5W 500 ML ONE (18:18)
[2024-04-12 18:40] LABS: PTT 47.8 sec (22.9-36.1)
[2024-04-12 18:41] LABS: INR-International Normal Ratio 1.7; Prothrombin Time 20.2 sec (12.0-14.7)
[2024-04-12] MEDS ORDERED: Acetaminophen 500 MG TAB ONE ×2 (19:53→19:54)
[2024-04-12] MEDS ORDERED: Acetaminophen 650 MG Suppository PR PRN (19:57)
[2024-04-12] MEDS ORDERED: Ondansetron PF 4 MG/2 ML Vial IVP PRN (19:57)
[2024-04-12] MEDS ORDERED: Nitroglycerin 0.4 MG TAB (25 Tab Bottle) SL PRN (19:57)
[2024-04-12] MEDS ORDERED: Ondansetron ODT 4 MG TAB PO PRN (19:57)
[2024-04-12 20:19] LABS: Hematocrit 28.7 % (36.0-47.0); Hemoglobin 9.2 g/dL (12.0-16.0); Platelet Count 240 10x3/uL (130-400)
[2024-04-12] MEDS ORDERED: Dextrose 5% in Water 1,000 ML IV PRN (20:54)
[2024-04-12] MEDS ORDERED: Dextrose 50% Abboject 50 ML SYRINGE SLOW IVP PRN (20:54)
[2024-04-12] MEDS ORDERED: Insulin Lispro 100 UNIT/ML 10 ML VIAL SC PRN (20:54)
[2024-04-12] MEDS ORDERED: Glucagon 1 MG/ML KIT IM PRN (20:54)
[2024-04-12 20:56] LABS: Troponin I 2.163 ng/mL (< 0.028)
[2024-04-12 21:23] VITALS: BMI 38.5
[2024-04-12] MEDS: Famotidine 20 MG TAB PO SCH (21:39)
[2024-04-12] MEDS: Atorvastatin Calcium 40 MG TAB PO SCH (21:39)
[2024-04-12] MEDS: Nitroglycerin 0.4 MG TAB (25 Tab Bottle) SL SCH (21:44)
[2024-04-12 23:32] LABS: Influenza A by NAA Not Detected (NotDetected); Influenza B by NAA Not Detected (NotDetected); RSV by NAA Not Detected (NotDetected); SARS-CoV-2 NAA Rapid Test Not Detected (NotDetected)
[2024-04-12 23:34] LABS: Troponin I 2.362 ng/mL (< 0.028)
[2024-04-13 03:29] LABS: #Basophils 0.08 10x3/uL (0.0-0.2); %Basophils 0.9 % (0.0-1.0); %Eosinophils 4.6 % (0.0-10.0); %Lymphocytes 23.6 % (21.0-51.0); %Monocytes 11.2 % (0.0-10.0); %Neutrophils 59.4 % (42.0-75.0); Hemoglobin 8.8 g/dL (12.0-16.0); Mean Corpuscular HGB CONC 31.4 g/dL (32.0-36.0); Mean Corpuscular Hemoglobin 26.6 pg (27.0-31.0); Mean Corpuscular Volume 84.6 fL (78.0-98.0); Mean Platelet Volume 11.2 fL (7.4-10.4); Platelet Count 247 10x3/uL (130-400); RBC Distribution Width 15.8 % (11.5-14.5); Red Blood Cell (RBC) Count 3.31 mill/uL (4.20-5.40)
[2024-04-13 03:47] LABS: Anion Gap 17 mmol/L (10-20); BUN (Urea Nitrogen) 39 mg/dL (9.8-20.1); Calc. Creatinine Clearance 13 mL/min (70-130); Calcium 8.2 mg/dL (7.8-10.44); Carbon Dioxide 27 mmol/L (22-29); Cardiac Risk 4.5 (Less than 4.5); Chloride 97 mmol/L (98-107); Cholesterol 162 mg/dl (< 200 Desired); Estimated GFR 6; Glucose 187 mg/dL (70-105); HDL Cholesterol 36 mg/dL (>60 Neg Risk); LDL Cholesterol, Calculated 103 mg/dL; Potassium 3.5 mmol/L (3.5-5.1); Sodium 137 mmol/L (136-145); Triglycerides 113 mg/dL (Less than 150)
[2024-04-13 03:53] LABS: Critical Call Chem Troponin I RESULT DECREASING
[2024-04-13 04:10] LABS: A1c 276.943 g/dL; Hb (HGBA1c) 5633.1786 umol/L; Hemoglobin A1c 6.6 % (4.0-6.0)
[2024-04-13] MEDS: Insulin Lispro 100 UNIT/ML 10 ML VIAL SC PRN (06:29)
[2024-04-13 07:14] LABS: HBSAB Concentration Less than 8.00 mIU/mL; HBsAg Index 0.37 S/CO (0-0.99); Hep B Core Total Ab NONREACTIVE (NonReactive); Hep B Core Total Index 0.11 S/CO (0-0.79); Hep B Surf AB NONREACTIVE (NonReactive); Hep B Surf Ag NONREACTIVE S/CO (NonReactive); Hep C IgG Ab NONREACTIVE S/CO (NonReactive); Hep C Index 0.12 S/CO (0-0.79)
[2024-04-13] MEDS: Heparin 10,000 UNITS/ 10 ML VIAL SLOW IVP SCH (08:47)
[2024-04-13] MEDS ORDERED: Clopidogrel Bisulfate 75 MG TAB PO SCH (09:00)
[2024-04-13] MEDS: Aspirin 81 mg Enteric Coated Tablet PO SCH (09:11)
[2024-04-13] MEDS: Acetaminophen 325 MG TAB PO PRN (09:11)
[2024-04-13] MEDS: NIFEdipine XL 60 MG ER.TAB PO SCH (09:17)
[2024-04-13] MEDS ORDERED: Iopamidol 370 76% 100 ML VIAL ONE (15:18)
[2024-04-13] MEDS: Carvedilol 3.125 MG TAB PO SCH (17:09)
[2024-04-13] MEDS: Heparin 25,000 units/D5W 500 ML IVPB SCH (17:12)
[2024-04-13] MEDS: Sacubitril 24MG/Valsartan 26 MG TAB PO SCH (21:41)
[2024-04-13 23:27] VITALS: BMI 39.4
[2024-04-14 04:32] LABS: #Basophils 0.06 10x3/uL (0.0-0.2); %Basophils 0.7 % (0.0-1.0); %Eosinophils 5.2 % (0.0-10.0); %Lymphocytes 24.2 % (21.0-51.0); %Monocytes 10.6 % (0.0-10.0); Hematocrit 28.2 % (36.0-47.0); Hemoglobin 8.9 g/dL (12.0-16.0); Mean Corpuscular HGB CONC 31.6 g/dL (32.0-36.0); Mean Corpuscular Volume 85.5 fL (78.0-98.0); Mean Platelet Volume 10.7 fL (7.4-10.4); Platelet Count 272 10x3/uL (130-400); RBC Distribution Width 15.5 % (11.5-14.5)
[2024-04-14 04:58] LABS: Anion Gap 20 mmol/L (10-20); BUN (Urea Nitrogen) 45 mg/dL (9.8-20.1); Calc. Creatinine Clearance 11 mL/min (70-130); Calcium 7.9 mg/dL (7.8-10.44); Carbon Dioxide 24 mmol/L (22-29); Chloride 96 mmol/L (98-107); Estimated GFR 5; Glucose 201 mg/dL (70-105); Potassium 3.9 mmol/L (3.5-5.1); Sodium 136 mmol/L (136-145)
[2024-04-14] MEDS: Colchicine 0.6 MG TAB PO SCH (08:38)
[2024-04-14] MEDS ORDERED: Colchicine 0.6 MG TAB PO SCH (10:06)
[2024-04-14] MEDS: Colchicine 0.3 MG TAB PO SCH (15:20)
[2024-04-14] MEDS: EPOETIN ALFA-EPBX (ESRD) 10,000 UNITS/ML VIAL IVP SCH (15:20)
[2024-04-14] MEDS: Ibuprofen 600 MG TAB PO PRN (20:49)
[2024-04-15 04:12] LABS: Hematocrit 31.7 % (36.0-47.0); Hemoglobin 9.7 g/dL (12.0-16.0); Platelet Count 294 10x3/uL (130-400)
[2024-04-15 08:16] VITALS: BP 159/77; TEMP 98.1
[2024-04-15] MEDS: Colchicine 0.3 MG TAB PO SCH (08:51)
[2024-04-15] MEDS: FLU (Fluarix Triv) TS24-25(6MOS UP)/PF 45 MCG/0.5 ML Syringe IM ONE (10:21)
== END 2024-04-15 11:10 | disposition home or self-care (01) | DRG 280 ==
LOC: ERS 15:32 → 2NO 20:02
PROVIDERS: ADMIT Family Medicine; ATTEND Family Medicine
PROC: 5A1D70Z Performance of Urinary Filtration, Intermittent, Less than 6 Hours Per Day (ICD-10-PCS; principal; 2024-04-12)
DX: I31.9 Disease of pericardium, unspecified (principal); N18.6 End stage renal disease; I21.A1 Myocardial infarction type 2; I13.0 Hypertensive heart and chronic kidney disease with heart failure and stage 1 through stage 4 chronic kidney disease, or unspecified chronic kidney disease; I50.32 Chronic diastolic (congestive) heart failure; J98.4 Other disorders of lung; I25.10 Atherosclerotic heart disease of native coronary artery without angina pectoris; E11.22 Type 2 diabetes mellitus with diabetic chronic kidney disease; E78.5 Hyperlipidemia, unspecified; F41.9 Anxiety disorder, unspecified; F32.A Depression, unspecified; Z90.710 Acquired absence of both cervix and uterus; Z90.49 Acquired absence of other specified parts of digestive tract; Z95.5 Presence of coronary angioplasty implant and graft; Z88.0 Allergy status to penicillin; M19.90 Unspecified osteoarthritis, unspecified site; D63.1 Anemia in chronic kidney disease
CPT/HCPCS: 0241U; 36415; 36416; 71045; 71275; 80048; 80053; 80061; 83036; 83690; 83735; 84484; 85014; 85018; 85025; 85049; 85610; 85730; 86704; 86706; 86803; 87340; 90656; 90935; 93005; 93970; 96365; G0257; J1644; J1815; Q5105; Q9967

== ENCOUNTER 2024-04-26 19:17 | Emergency (ER) | payer MEDICAID, OTHER ==
[2024-04-26 20:46] LABS: #Basophils 0.09 10x3/uL (0.0-0.2); %Basophils 0.8 % (0.0-1.0); %Eosinophils 3.3 % (0.0-10.0); %Neutrophils 70.4 % (42.0-75.0); Hematocrit 30.3 % (36.0-47.0); Hemoglobin 9.5 g/dL (12.0-16.0); Mean Corpuscular HGB CONC 31.4 g/dL (32.0-36.0); Mean Corpuscular Hemoglobin 27.1 pg (27.0-31.0); Mean Corpuscular Volume 86.6 fL (78.0-98.0); Mean Platelet Volume 10.9 fL (7.4-10.4); Platelet Count 326 10x3/uL (130-400); RBC Distribution Width 15.9 % (11.5-14.5)
[2024-04-26] MEDS ORDERED: Aspirin Chewable 81 MG TAB ONE (20:50)
[2024-04-26 21:04] LABS: ALT (SGPT) Less than 7 U/L (Less than 34); AST (SGOT) 9 U/L (11-34); Albumin 3.4 g/dL (3.1-4.5); Alkaline Phosphatase 54 U/L (40-110); Anion Gap 18 mmol/L (10-20); BUN (Urea Nitrogen) 55 mg/dL (9.8-20.1); Bilirubin, Total 0.2 mg/dL (0.3-1.2); Calc. Creatinine Clearance 0 mL/min (70-130); Calcium 8.2 mg/dL (7.8-10.44); Carbon Dioxide 25 mmol/L (22-29); Chloride 102 mmol/L (98-107); Estimated GFR 5; Globulin 4.2 g/dL (2.4-3.5); Glucose 202 mg/dL (70-105); Protein, Total 7.6 g/dL (6.0-8.3); Sodium 141 mmol/L (136-145)
[2024-04-26 21:13] LABS: Troponin I 0.769 ng/mL (< 0.028)
[2024-04-26] MEDS ORDERED: Ketorolac Tromethamine 30 MG (1 mL) VIAL ONE (23:28)
[2024-04-27] LABS: Critical Call Chem Troponin I RESULT DECREASING; Troponin I 0.726 ng/mL (< 0.028)
== END 2024-04-27 00:43 | disposition home or self-care (01) ==
LOC: ERS 19:17
DX: J06.9 Acute upper respiratory infection, unspecified (principal); M94.0 Chondrocostal junction syndrome [Tietze]; I12.0 Hypertensive chronic kidney disease with stage 5 chronic kidney disease or end stage renal disease; E11.22 Type 2 diabetes mellitus with diabetic chronic kidney disease; N18.6 End stage renal disease; E78.5 Hyperlipidemia, unspecified; I25.10 Atherosclerotic heart disease of native coronary artery without angina pectoris; I26.99 Other pulmonary embolism without acute cor pulmonale; Z55.6 Problems related to health literacy; Z99.2 Dependence on renal dialysis; Z86.73 Personal history of transient ischemic attack (TIA), and cerebral infarction without residual deficits
CPT/HCPCS: 36415; 71045; 80053; 84443; 84484; 85025; 93005; 96372; J1885

== ENCOUNTER 2024-10-09 12:35 | Inpatient (IN) | payer MEDICAID ==
[2024-10-09 13:50] LABS: #Basophils 0.10 10x3/uL (0.0-0.2); #Eosinophils 0.09 10x3/uL (0.0-0.7); #Monocytes 0.97 10x3/uL (0.11-0.59); #Neutrophils 14.93 10x3/uL (1.40-6.50); %Basophils 0.6 % (0.0-1.0); %Eosinophils 0.5 % (0.0-10.0); %Lymphocytes 5.3 % (21.0-51.0); %Monocytes 5.7 % (0.0-10.0); %Neutrophils 87.4 % (42.0-75.0); Hematocrit 31.7 % (36.0-47.0); Hemoglobin 9.8 g/dL (12.0-16.0); Mean Corpuscular Hemoglobin 26.8 pg (27.0-31.0); Mean Corpuscular Volume 86.6 fL (78.0-98.0); Platelet Count 390 10x3/uL (130-400); Red Blood Cell (RBC) Count 3.66 mill/uL (4.20-5.40); White Blood Cell (WBC) Count 17.09 10x3/uL (4.8-10.8)
[2024-10-09 14:17] LABS: ALT (SGPT) Less than 7 U/L (Less than 34); AST (SGOT) 14 U/L (11-34); Albumin 3.2 g/dL (3.1-4.5); Alkaline Phosphatase 59 U/L (40-110); Anion Gap 24 mmol/L (10-20); BUN (Urea Nitrogen) 89 mg/dL (9.8-20.1); Bilirubin, Total 0.5 mg/dL (0.3-1.2); Calc. Creatinine Clearance 0 mL/min (70-130); Calcium 8.3 mg/dL (7.8-10.44); Carbon Dioxide 14 mmol/L (22-29); Chloride 102 mmol/L (98-107); Globulin 4.8 g/dL (2.4-3.5); Glucose 202 mg/dL (70-105); Potassium 5.5 mmol/L (3.5-5.1); Sodium 134 mmol/L (136-145)
[2024-10-09 14:39] LABS: Troponin I 0.273 ng/mL (< 0.028)
[2024-10-09] MEDS ORDERED: cefTRIAXone (ROCEPHIN) 1 GM VIAL ONE (14:52)
[2024-10-09] MEDS ORDERED: Azithromycin 500 MG VIAL ONE (15:33)
[2024-10-09] MEDS ORDERED: Ondansetron PF 4 MG/2 ML Vial IVP PRN (16:12)
[2024-10-09] MEDS ORDERED: Glucagon 1 MG/ML KIT IM PRN (16:12)
[2024-10-09] MEDS ORDERED: Dextrose 50% Abboject 50 ML SYRINGE SLOW IVP PRN (16:12)
[2024-10-09] MEDS ORDERED: Albuterol 200 PUFF (6.7GM INHALER) INH PRN (16:21)
[2024-10-09] MEDS ORDERED: Albuterol 2.5 MG (3 mL) NEB NEB PRN (16:30)
[2024-10-09 18:25] VITALS: BMI 37.8
[2024-10-09] MEDS: Carvedilol 6.25 MG TAB PO SCH (21:37)
[2024-10-09] MEDS: NIFEdipine XL 60 MG ER.TAB PO SCH (21:37)
[2024-10-09] MEDS: Heparin 5,000 UNITS/ML VIAL SC SCH (21:39)
[2024-10-10 05:19] LABS: #Basophils 0.09 10x3/uL (0.0-0.2); #Eosinophils 0.22 10x3/uL (0.0-0.7); #Monocytes 0.93 10x3/uL (0.11-0.59); #Neutrophils 9.06 10x3/uL (1.40-6.50); %Basophils 0.8 % (0.0-1.0); %Eosinophils 1.8 % (0.0-10.0); %Lymphocytes 13.4 % (21.0-51.0); %Monocytes 7.8 % (0.0-10.0); %Neutrophils 75.6 % (42.0-75.0); Hematocrit 28.5 % (36.0-47.0); Hemoglobin 8.8 g/dL (12.0-16.0); Mean Corpuscular Hemoglobin 27.0 pg (27.0-31.0); Mean Corpuscular Volume 87.4 fL (78.0-98.0); Platelet Count 364 10x3/uL (130-400); Red Blood Cell (RBC) Count 3.26 mill/uL (4.20-5.40); White Blood Cell (WBC) Count 11.97 10x3/uL (4.8-10.8)
[2024-10-10 05:37] LABS: Anion Gap 24 mmol/L (10-20); BUN (Urea Nitrogen) 98 mg/dL (9.8-20.1); Calc. Creatinine Clearance 7 mL/min (70-130); Calcium 8.4 mg/dL (7.8-10.44); Carbon Dioxide 15 mmol/L (22-29); Chloride 103 mmol/L (98-107); Glucose 141 mg/dL (70-105); Potassium 4.9 mmol/L (3.5-5.1); Sodium 137 mmol/L (136-145)
[2024-10-10] MEDS: Benzonatate 100 MG CAP PO SCH (06:14)
[2024-10-10] MEDS ORDERED: Heparin 10,000 UNITS/ 10 ML VIAL ONE ×2 (10:30→11:00)
[2024-10-10] MEDS: Activase 2 MG VIAL CATH SCH (11:00)
[2024-10-10] MEDS ORDERED: Vancomycin Diaylsis Sliding Scale (Wt 71-99) FS SCH (11:30)
[2024-10-10] MEDS: Aspirin 81 mg Enteric Coated Tablet PO SCH (12:24)
[2024-10-10] MEDS: Vancomycin (BATCH) 1.75 GM in Premix 1 BAG IVPB SCH (16:25)
[2024-10-10] MEDS: Acetaminophen 325 MG TAB PO PRN (21:07)
[2024-10-10] MEDS: Famotidine/PF 20 mg/2ml Vial SLOW IVP SCH (21:10)
[2024-10-10] MEDS: Lidocaine 1% (PF) 30 ML VIAL ONE (21:22)
[2024-10-11] MEDS: cefTRIAXone\\ROCEPHIN 1 GM in Sodium Chloride 0.9% 100 ML IVPB SCH ×2 (01:12→03:43)
[2024-10-11] MEDS: Azithromycin 500 MG in Sodium Chloride 0.9% 250 ML 250 ML IVPB SCH ×2 (01:13→03:43)
[2024-10-11 04:28] LABS: Anion Gap 17 mmol/L (10-20); BUN (Urea Nitrogen) 18 mg/dL (9.8-20.1); Calc. Creatinine Clearance 24 mL/min (70-130); Calcium 8.5 mg/dL (7.8-10.44); Carbon Dioxide 24 mmol/L (22-29); Chloride 101 mmol/L (98-107); Glucose 160 mg/dL (70-105); Potassium 3.5 mmol/L (3.5-5.1); Sodium 138 mmol/L (136-145)
[2024-10-11] MEDS ORDERED: Heparin 10,000 UNITS/ 10 ML VIAL ONE (10:33)
[2024-10-11 12:48] LABS: Vancomycin, Trough 26.9 ug/mL
[2024-10-11 13:57] VITALS: BMI 36.0
[2024-10-11] MEDS: Albumin 25% 25 GM (100 mL) BOT IVPB PRN (16:08)
[2024-10-12 05:49] LABS: #Basophils 0.04 10x3/uL (0.0-0.2); #Eosinophils 0.64 10x3/uL (0.0-0.7); #Monocytes 0.85 10x3/uL (0.11-0.59); #Neutrophils 4.87 10x3/uL (1.40-6.50); %Basophils 0.5 % (0.0-1.0); %Eosinophils 8.0 % (0.0-10.0); %Lymphocytes 19.3 % (21.0-51.0); %Monocytes 10.7 % (0.0-10.0); %Neutrophils 61.1 % (42.0-75.0); Hematocrit 25.9 % (36.0-47.0); Hemoglobin 8.0 g/dL (12.0-16.0); Mean Corpuscular Hemoglobin 27.0 pg (27.0-31.0); Mean Corpuscular Volume 87.5 fL (78.0-98.0); Platelet Count 298 10x3/uL (130-400); Red Blood Cell (RBC) Count 2.96 mill/uL (4.20-5.40); White Blood Cell (WBC) Count 7.97 10x3/uL (4.8-10.8)
[2024-10-12 06:05] LABS: Anion Gap 18 mmol/L (10-20); BUN (Urea Nitrogen) 38 mg/dL (9.8-20.1); Calc. Creatinine Clearance 14 mL/min (70-130); Calcium 9.0 mg/dL (7.8-10.44); Carbon Dioxide 25 mmol/L (22-29); Chloride 100 mmol/L (98-107); Glucose 150 mg/dL (70-105); Potassium 3.8 mmol/L (3.5-5.1); Sodium 139 mmol/L (136-145)
[2024-10-12 06:38] LABS: HBSAB Concentration Less than 8.00 mIU/mL; Hep B Core Total Ab NONREACTIVE (NonReactive); Hep B Core Total Index 0.06 S/CO (0-0.79); Hep B Surf Ag NONREACTIVE S/CO (NonReactive); Hep C IgG Ab NONREACTIVE S/CO (NonReactive); Hep C Index 0.12 S/CO (0-0.79)
[2024-10-12] MEDS ORDERED: Heparin 10,000 UNITS/ 10 ML VIAL ONE (10:24)
[2024-10-12] MEDS ORDERED: PROPOFOL 20 ML ONE (10:38)
[2024-10-12] MEDS ORDERED: Lidocaine 1% PF 5 ML VIAL ONE (10:39)
[2024-10-12] MEDS ORDERED: CEFAZOLIN 2 GM VIAL ONE (10:55)
[2024-10-12] MEDS ORDERED: Ondansetron PF 4 MG/2 ML Vial ONE (11:29)
[2024-10-12] MEDS: EPOETIN ALFA-EPBX (ESRD) 10,000 UNITS/ML VIAL SC SCH (13:52)
[2024-10-12] MEDS: Benzonatate 100 MG CAP PO PRN (20:50)
[2024-10-13 08:00] VITALS: BP 120/66; TEMP 98.2
[2024-10-13 09:26] LABS: #Basophils 0.05 10x3/uL (0.0-0.2); #Eosinophils 0.67 10x3/uL (0.0-0.7); #Monocytes 0.65 10x3/uL (0.11-0.59); #Neutrophils 4.10 10x3/uL (1.40-6.50); %Basophils 0.7 % (0.0-1.0); %Eosinophils 9.8 % (0.0-10.0); %Lymphocytes 20.0 % (21.0-51.0); %Monocytes 9.5 % (0.0-10.0); %Neutrophils 59.7 % (42.0-75.0); Hematocrit 23.1 % (36.0-47.0); Hemoglobin 7.1 g/dL (12.0-16.0); Mean Corpuscular Hemoglobin 27.5 pg (27.0-31.0); Mean Corpuscular Volume 89.5 fL (78.0-98.0); Platelet Count 287 10x3/uL (130-400); Red Blood Cell (RBC) Count 2.58 mill/uL (4.20-5.40); White Blood Cell (WBC) Count 6.86 10x3/uL (4.8-10.8)
[2024-10-13 09:56] LABS: Vancomycin, Trough 22.2 ug/mL
[2024-10-13 09:57] LABS: Anion Gap 16 mmol/L (10-20); BUN (Urea Nitrogen) 47 mg/dL (9.8-20.1); Calc. Creatinine Clearance 11 mL/min (70-130); Calcium 8.3 mg/dL (7.8-10.44); Carbon Dioxide 24 mmol/L (22-29); Chloride 102 mmol/L (98-107); Glucose 139 mg/dL (70-105); Potassium 4.1 mmol/L (3.5-5.1); Sodium 138 mmol/L (136-145)
[2024-10-13] MEDS ORDERED: Heparin 10,000 UNITS/ 10 ML VIAL ONE (10:44)
[2024-10-13] MEDS: hydrALAZINE 20 MG/ML VIAL SLOW IVP SCH (11:29)
[2024-10-13] MEDS: EPOETIN ALFA-EPBX (ESRD) 10,000 UNITS/ML VIAL IVP SCH (15:50)
== END 2024-10-13 16:15 | disposition home or self-care (01) | DRG 871 ==
LOC: SUATTDRO 12:35 → ERS 12:35 → 2NO 16:12 → IMCU/EMU 10-10 08:48 → T4-B 10-12 19:09
PROVIDERS: ADMIT Family Medicine; ATTEND Family Medicine
PROC: 06HN33Z Insertion of Infusion Device into Left Femoral Vein, Percutaneous Approach (ICD-10-PCS; principal; 2024-10-12)
PROC: 0JH63XZ Insertion of Tunneled Vascular Access Device into Chest Subcutaneous Tissue and Fascia, Percutaneous Approach (ICD-10-PCS; 2024-10-12)
PROC: 02HV33Z Insertion of Infusion Device into Superior Vena Cava, Percutaneous Approach (ICD-10-PCS; 2024-10-12)
PROC: B5181ZA Fluoroscopy of Superior Vena Cava using Low Osmolar Contrast, Guidance (ICD-10-PCS; 2024-10-12)
DX: A41.9 Sepsis, unspecified organism (principal); J15.69 Pneumonia due to other Gram-negative bacteria; J69.0 Pneumonitis due to inhalation of food and vomit; J96.21 Acute and chronic respiratory failure with hypoxia; N18.6 End stage renal disease; E87.20 Acidosis, unspecified; E87.70 Fluid overload, unspecified; F41.9 Anxiety disorder, unspecified; F32.A Depression, unspecified; I50.9 Heart failure, unspecified; I11.0 Hypertensive heart disease with heart failure; E78.5 Hyperlipidemia, unspecified; E11.9 Type 2 diabetes mellitus without complications; E87.5 Hyperkalemia; D64.9 Anemia, unspecified; Z88.0 Allergy status to penicillin; Z90.49 Acquired absence of other specified parts of digestive tract; Z90.79 Acquired absence of other genital organ(s); Z86.73 Personal history of transient ischemic attack (TIA), and cerebral infarction without residual deficits; I25.2 Old myocardial infarction; Z88.8 Allergy status to other drugs, medicaments and biological substances; Z98.890 Other specified postprocedural states
CPT/HCPCS: 36415; 36416; 71045; 80048; 80053; 80202; 83605; 83880; 84484; 85025; 86704; 86706; 86803; 87040; 87071; 87340; 93005; 94640; 94660; 94760; 96374; 96375; C1750; C1769; J0360; J0456; J0665; J0696; J1642; J1644; J1815; J2405; J2704; J2997; J3010; J3370; J3490; J7050; J7620; P9047; Q0162; Q5105

== ENCOUNTER 2024-11-20 14:09 | Observation (INO) | payer MEDICAID ==
[2024-11-20] MEDS ORDERED: Ondansetron PF 4 MG/2 ML Vial ONE ×2 (14:58→19:34)
[2024-11-20 17:32] LABS: CAUTI Indications for Culture Pelvic or flank pain; Glucose, Urine (Dipstick) 500 mg/dL (Negative); Leukocyte Negative Leu/uL (Negative); Protein, Urine (Dipstick) 100 mg/dL (Neg-Trace); Specific Gravity, Urine 1.008 (1.002-1.036); WBC/HPF 0-3 HPF (0-3)
[2024-11-20 17:40] LABS: Bacteria/HPF 1+ HPF (None Seen)
[2024-11-20 17:41] LABS: Urine Culture Reflex No No
[2024-11-20 19:05] LABS: #Basophils 0.10 10x3/uL (0.0-0.2); #Eosinophils 0.39 10x3/uL (0.0-0.7); #Monocytes 0.74 10x3/uL (0.11-0.59); #Neutrophils 6.04 10x3/uL (1.40-6.50); %Basophils 1.1 % (0.0-1.0); %Eosinophils 4.2 % (0.0-10.0); %Lymphocytes 21.2 % (21.0-51.0); %Monocytes 8.0 % (0.0-10.0); %Neutrophils 65.3 % (42.0-75.0); Hematocrit 39.0 % (36.0-47.0); Hemoglobin 12.6 g/dL (12.0-16.0); Mean Corpuscular Hemoglobin 26.7 pg (27.0-31.0); Mean Corpuscular Volume 82.6 fL (78.0-98.0); Platelet Count 334 10x3/uL (130-400); Red Blood Cell (RBC) Count 4.72 mill/uL (4.20-5.40); White Blood Cell (WBC) Count 9.25 10x3/uL (4.8-10.8)
[2024-11-20 19:26] LABS: ALT (SGPT) Less than 7 U/L (Less than 34); AST (SGOT) 26 U/L (11-34); Albumin 3.9 g/dL (3.1-4.5); Alkaline Phosphatase 76 U/L (40-110); Anion Gap 17 mmol/L (10-20); BUN (Urea Nitrogen) 39 mg/dL (9.8-20.1); Bilirubin, Total 0.3 mg/dL (0.3-1.2); Calc. Creatinine Clearance 0 mL/min (70-130); Calcium 9.3 mg/dL (7.8-10.44); Carbon Dioxide 27 mmol/L (22-29); Chloride 98 mmol/L (98-107); Globulin 5.2 g/dL (2.4-3.5); Glucose 117 mg/dL (70-105); Lipase 59 U/L (8-78); Magnesium 2.4 mg/dL (1.6-2.6); Potassium 3.3 mmol/L (3.5-5.1); Sodium 139 mmol/L (136-145)
[2024-11-21] MEDS ORDERED: Acetaminophen 325 MG TAB PO PRN (01:08)
[2024-11-21] MEDS ORDERED: Glucagon 1 MG/ML KIT IM PRN (01:08)
[2024-11-21] MEDS ORDERED: Dextrose 50% Abboject 50 ML SYRINGE SLOW IVP PRN (01:08)
[2024-11-21] MEDS ORDERED: Nitroglycerin 0.4 MG TAB (25 Tab Bottle) SL PRN (01:08)
[2024-11-21] MEDS ORDERED: Ondansetron PF 4 MG/2 ML Vial IVP PRN (01:08)
[2024-11-21 04:21] VITALS: BMI 36.3
[2024-11-21 07:23] LABS: #Basophils 0.08 10x3/uL (0.0-0.2); #Eosinophils 0.39 10x3/uL (0.0-0.7); #Monocytes 0.94 10x3/uL (0.11-0.59); #Neutrophils 5.59 10x3/uL (1.40-6.50); %Basophils 0.9 % (0.0-1.0); %Eosinophils 4.3 % (0.0-10.0); %Lymphocytes 22.8 % (21.0-51.0); %Monocytes 10.3 % (0.0-10.0); %Neutrophils 61.2 % (42.0-75.0); Hematocrit 35.2 % (36.0-47.0); Hemoglobin 11.2 g/dL (12.0-16.0); Mean Corpuscular Hemoglobin 26.9 pg (27.0-31.0); Mean Corpuscular Volume 84.4 fL (78.0-98.0); Platelet Count 139 10x3/uL (130-400); Red Blood Cell (RBC) Count 4.17 mill/uL (4.20-5.40); White Blood Cell (WBC) Count 9.13 10x3/uL (4.8-10.8)
[2024-11-21 07:48] LABS: Anisocytosis SLIGHT = 6-15 cells HPF (0-5); Burr Cells SLIGHT = 2-5 cells HPF (0-1); Platelet Adequacy Comment Platelets Normal; Polychromasia SLIGHT = 2-3 cells HPF (0-2); Schistocytes SLIGHT = 2-5 cells HPF (0-1)
[2024-11-21] MEDS: Aspirin Chewable 81 MG TAB PO SCH (09:18)
[2024-11-21] MEDS: PNEUMOC 20-VAL CONJ-DIP CRM/PF 0.5 ML SYRINGE IM ONE (09:18)
[2024-11-21 10:19] LABS: Anion Gap 18 mmol/L (10-20); BUN (Urea Nitrogen) 51 mg/dL (9.8-20.1); Calc. Creatinine Clearance 11 mL/min (70-130); Calcium 8.7 mg/dL (7.8-10.44); Carbon Dioxide 25 mmol/L (22-29); Chloride 104 mmol/L (98-107); Glucose 192 mg/dL (70-105); Potassium 3.6 mmol/L (3.5-5.1); Sodium 143 mmol/L (136-145)
[2024-11-21 12:42] VITALS: BP 179/79; TEMP 98.6
== END 2024-11-21 14:55 | disposition home or self-care (01) ==
LOC: ERS 14:09 → 2SE 11-21 00:57
PROVIDERS: ADMIT Internal Medicine; ATTEND Internal Medicine
DX: I21.4 Non-ST elevation (NSTEMI) myocardial infarction (principal); R11.2 Nausea with vomiting, unspecified; I13.2 Hypertensive heart and chronic kidney disease with heart failure and with stage 5 chronic kidney disease, or end stage renal disease; N18.6 End stage renal disease; E78.5 Hyperlipidemia, unspecified; I50.30 Unspecified diastolic (congestive) heart failure; F32.A Depression, unspecified; F41.9 Anxiety disorder, unspecified; E11.22 Type 2 diabetes mellitus with diabetic chronic kidney disease; I25.10 Atherosclerotic heart disease of native coronary artery without angina pectoris; Z88.8 Allergy status to other drugs, medicaments and biological substances; Z88.0 Allergy status to penicillin; Z98.890 Other specified postprocedural states; Z99.2 Dependence on renal dialysis; Z79.82 Long term (current) use of aspirin; Z79.02 Long term (current) use of antithrombotics/antiplatelets; Z79.899 Other long term (current) drug therapy
CPT/HCPCS: 36415; 36416; 70450; 71045; 74176; 80048; 80053; 81001; 83690; 83735; 84484; 85025; 87428; 90471; 90677; 93005; 96360; 96361; G0009; G0378; J1815; J2405

== ENCOUNTER 2025-01-06 13:34 | Inpatient (IN) | payer MEDICAID, OTHER ==
[2025-01-06 14:46] LABS: #Basophils 0.09 10x3/uL (0.0-0.2); #Eosinophils 0.44 10x3/uL (0.0-0.7); #Monocytes 0.96 10x3/uL (0.11-0.59); #Neutrophils 13.76 10x3/uL (1.40-6.50); %Basophils 0.5 % (0.0-1.0); %Eosinophils 2.6 % (0.0-10.0); %Lymphocytes 9.0 % (21.0-51.0); %Monocytes 5.7 % (0.0-10.0); %Neutrophils 81.8 % (42.0-75.0); Hematocrit 37.9 % (36.0-47.0); Hemoglobin 11.8 g/dL (12.0-16.0); Mean Corpuscular Hemoglobin 26.0 pg (27.0-31.0); Mean Corpuscular Volume 83.5 fL (78.0-98.0); Platelet Count 280 10x3/uL (130-400); Red Blood Cell (RBC) Count 4.54 mill/uL (4.20-5.40); White Blood Cell (WBC) Count 16.84 10x3/uL (4.8-10.8)
[2025-01-06 15:58] LABS: ALT (SGPT) Less than 7 U/L (Less than 34); AST (SGOT) 11 U/L (11-34); Albumin 3.4 g/dL (3.1-4.5); Alkaline Phosphatase 65 U/L (40-110); Anion Gap 21 mmol/L (10-20); BUN (Urea Nitrogen) 71 mg/dL (9.8-20.1); Bilirubin, Total 0.4 mg/dL (0.3-1.2); Calc. Creatinine Clearance 0 mL/min (70-130); Calcium 8.8 mg/dL (7.8-10.44); Carbon Dioxide 19 mmol/L (22-29); Chloride 104 mmol/L (98-107); Globulin 4.6 g/dL (2.4-3.5); Glucose 134 mg/dL (70-105); Potassium 4.7 mmol/L (3.5-5.1); Sodium 139 mmol/L (136-145)
[2025-01-06] MEDS ORDERED: LevoFLOXacin 750 mg/D5W 150 ml Premix Bag ONE (16:03)
[2025-01-06] MEDS ORDERED: Guaifenesin DM 100-10/5 ML UDCUP PO PRN (16:40)
[2025-01-06] MEDS ORDERED: Senokot S 8.6-50 MG TAB PO PRN (16:40)
[2025-01-06] MEDS ORDERED: Electrolyte Replacement Protocol 1 EACH FS SCH (16:45)
[2025-01-06 19:13] VITALS: BMI 37.0
[2025-01-06] MEDS: VANCOMYCIN 1.75 GM/350 ML Premix BAG IVPB SCH (19:16)
[2025-01-06] MEDS: Heparin 10,000 UNITS/ 10 ML VIAL SLOW IVP PRN (22:21)
[2025-01-06] MEDS: Heparin 10,000 UNITS/ 10 ML VIAL CATH PRN (22:23)
[2025-01-06] MEDS: Acetaminophen 325 MG TAB PO PRN (23:36)
[2025-01-07] MEDS: NIFEdipine XL 60 MG ER.TAB PO SCH (01:15)
[2025-01-07] MEDS: Heparin 5,000 UNITS/ML VIAL SC SCH (01:15)
[2025-01-07] MEDS: Carvedilol 6.25 MG TAB PO SCH (01:17)
[2025-01-07] MEDS: Fioricet 325/50/40 mg Tablet PO PRN (03:51)
[2025-01-07 06:20] LABS: #Basophils 0.07 10x3/uL (0.0-0.2); #Eosinophils 0.35 10x3/uL (0.0-0.7); #Monocytes 0.78 10x3/uL (0.11-0.59); #Neutrophils 6.82 10x3/uL (1.40-6.50); %Basophils 0.7 % (0.0-1.0); %Eosinophils 3.7 % (0.0-10.0); %Lymphocytes 15.0 % (21.0-51.0); %Monocytes 8.2 % (0.0-10.0); %Neutrophils 72.1 % (42.0-75.0); Hematocrit 34.4 % (36.0-47.0); Hemoglobin 10.5 g/dL (12.0-16.0); Mean Corpuscular Hemoglobin 25.7 pg (27.0-31.0); Mean Corpuscular Volume 84.3 fL (78.0-98.0); Platelet Count 226 10x3/uL (130-400); Red Blood Cell (RBC) Count 4.08 mill/uL (4.20-5.40); White Blood Cell (WBC) Count 9.47 10x3/uL (4.8-10.8)
[2025-01-07 06:40] LABS: Anion Gap 16 mmol/L (10-20); BUN (Urea Nitrogen) 30 mg/dL (9.8-20.1); Calc. Creatinine Clearance 17 mL/min (70-130); Calcium 8.8 mg/dL (7.8-10.44); Carbon Dioxide 26 mmol/L (22-29); Chloride 98 mmol/L (98-107); Glucose 129 mg/dL (70-105); Potassium 3.9 mmol/L (3.5-5.1); Sodium 136 mmol/L (136-145)
[2025-01-07] MEDS: Isosorbide Mononitrate 30 MG ER.TAB.S PO SCH (09:10)
[2025-01-07 10:04] LABS: HBSAB Concentration Less than 8.00 mIU/mL; Hep B Core Total Ab NONREACTIVE (NonReactive); Hep B Core Total Index 0.18 S/CO (0-0.79); Hep B Surf Ag NONREACTIVE S/CO (NonReactive)
[2025-01-07] MEDS: Ondansetron PF 4 MG/2 ML Vial IVP PRN (11:58)
[2025-01-07] MEDS: HYDROcodone/Acetaminophen 5/325 mg Tablet PO PRN (17:26)
[2025-01-08] MEDS: Sodium Chloride 0.65% Nasal 44 ML BOT EA NARE PRN (02:35)
[2025-01-08 08:05] VITALS: TEMP 98
[2025-01-08 09:24] LABS: #Basophils 0.07 10x3/uL (0.0-0.2); #Eosinophils 0.43 10x3/uL (0.0-0.7); #Monocytes 0.94 10x3/uL (0.11-0.59); #Neutrophils 4.72 10x3/uL (1.40-6.50); %Basophils 0.9 % (0.0-1.0); %Eosinophils 5.4 % (0.0-10.0); %Lymphocytes 22.8 % (21.0-51.0); %Monocytes 11.8 % (0.0-10.0); %Neutrophils 58.8 % (42.0-75.0); Hematocrit 33.8 % (36.0-47.0); Hemoglobin 10.0 g/dL (12.0-16.0); Mean Corpuscular Hemoglobin 25.6 pg (27.0-31.0); Mean Corpuscular Volume 86.7 fL (78.0-98.0); Platelet Count 245 10x3/uL (130-400); Red Blood Cell (RBC) Count 3.90 mill/uL (4.20-5.40); White Blood Cell (WBC) Count 8.00 10x3/uL (4.8-10.8)
[2025-01-08 09:56] LABS: Anion Gap 19 mmol/L (10-20); BUN (Urea Nitrogen) 56 mg/dL (9.8-20.1); Calc. Creatinine Clearance 12 mL/min (70-130); Calcium 8.6 mg/dL (7.8-10.44); Carbon Dioxide 26 mmol/L (22-29); Chloride 97 mmol/L (98-107); Glucose 107 mg/dL (70-105); Potassium 4.3 mmol/L (3.5-5.1); Sodium 138 mmol/L (136-145)
[2025-01-08] MEDS: LevoFLOXacin 750 mg/D5W 750 MG in Premix 1 BAG IVPB SCH (13:44)
[2025-01-08 14:45] VITALS: BP 102/68
[2025-01-08] MEDS ORDERED: LevoFLOXacin 750 mg/D5W 750 MG in Premix 1 BAG IVPB SCH (16:00)
[2025-01-09] MEDS ORDERED: PNEUMOC 20-VAL CONJ-DIP CRM/PF 0.5 ML SYRINGE IM ONE (20:00)
== END 2025-01-08 16:01 | disposition home or self-care (01) | DRG 177 ==
LOC: ERS 13:34 → OBS 16:21
PROVIDERS: ADMIT Hospitalist; ATTEND Hospitalist
DX: J15.69 Pneumonia due to other Gram-negative bacteria (principal); J96.01 Acute respiratory failure with hypoxia; N18.6 End stage renal disease; I13.0 Hypertensive heart and chronic kidney disease with heart failure and stage 1 through stage 4 chronic kidney disease, or unspecified chronic kidney disease; I50.32 Chronic diastolic (congestive) heart failure; Z88.0 Allergy status to penicillin; Z88.8 Allergy status to other drugs, medicaments and biological substances; F41.9 Anxiety disorder, unspecified; F32.A Depression, unspecified; E78.5 Hyperlipidemia, unspecified; E11.9 Type 2 diabetes mellitus without complications; I25.10 Atherosclerotic heart disease of native coronary artery without angina pectoris; Z98.890 Other specified postprocedural states; Z86.711 Personal history of pulmonary embolism; D64.9 Anemia, unspecified
CPT/HCPCS: 36415; 36416; 71045; 80048; 80053; 83605; 83880; 84145; 84484; 85025; 86704; 86706; 87040; 87340; 87428; 90935; 93005; 94760; 96374; G0257; J1644; J1956; J3375